=== PATIENT | female | born 1995 | race Caucasian/White ===

== ENCOUNTER → 2022-07-12 08:23 | Outpatient (BNVA) | payer BC, SELFPAY | PROVIDERS: Visit Provider Family Medicine Adult Medicine | DX: O26.91 Pregnancy related conditions, unspecified, first trimester (principal); R39.9 Unspecified symptoms and signs involving the genitourinary system; Z3A.00 Weeks of gestation of pregnancy not specified | CPT/HCPCS: 81000; 81025 ==

== ENCOUNTER 2024-10-16 11:18 | Emergency (ER) | payer BC, SELFPAY ==
[2024-10-16 11:20] VITALS: BP 95/63; PULSE 80; RESP 16; TEMP 36.4; O2SAT 98; BMI 22.1
--- OUTSIDE RECORDS SUMMARY | 2024-10-16 11:26 | XMS_ITS | Clinical Summary ---
Author Organization [facility] david Blencoe Address [address] [facility] [place] [address] Care Team Providers Care Skin Therapist Name Role Phone Unavailable Primary Care Provider Unavailabl e Medications No known medications Active Problems Problem Noted Date Diagnosed Date Chlamydia, treated 02/12/22 02/12/2022 Family History Medical History Relation Name Comments Ovarian Cancer Maternal Grandmother Breast Cancer Neg Hx Relation Name Status Comments Maternal Grandmother Social History Tobacco Use Types Packs/Day Years Used Date Smoking Tobacco: Former Cigarettes Tobacco Cessation:Counseling Given: Not Answered Alcohol Use Standard Drinks/Week Comments Yes 0 (1 standard drink = 0.6 oz pur e alcohol) Comments Unknown Sex and Gender Information Value Date Recorded Sex Assigned at Not on file Legal Sex Female 3:48 PM CDT Gender Identity Not on file Sexual Orientation Not on file Last Filed Vital Signs Vital Sign Reading Time Taken Comments Blood Pressure 125/70 02/06/2022 10:51 AM CDT Pulse - - Temperature - - Respiratory Rate - - Oxygen Saturation - - Inhaled Oxygen Concentration - - Weight 63.5 kg (140 lb) 02/06/2022 10:51 AM CDT Height 154.9 cm (5' 1 ) 02/06/2022 10:51 AM CDT Body Mass Index 26.45 02/06/2022 10:51 AM CDT Plan of Treatment Health Maintenance Due Date Last Done Comments DTAP/TDAP/TD VACCINES (1 - Tdap) 2015 HEPATITIS B VACCINES (1 of 3 - 19+ 3-dose series) 2015 HPV/Cotest (21-29) 2017 INFLUENZA VACCINE (#1) 2024 CERVICAL CANCER SCREENING 02/06/2025 PAP SMEAR 02/06/2025 02/06/2022 HPV VACCINES Aged Out No longer eligi ble based on patient's age to complete this topic Procedures Procedure Name Priority Date/Time Associated Diagnosis Comments CERV/VAG CYTO AGE BASED SCREEN PAP Routine 02/06/2022 12:01 PM CDT Well woman exam with routine gynecological exam Screening for cervical cancer from Last 3 Months or Most Recently Relevant to Health Maintenance Results * CERV/VAG CYTO AGE BASED SCREEN PAP (02/06/2022 12:01 PM CDT) COMMENT (PAP): Renny Bradshaw Comment: This order for age-based cervical cancer and STI screening follows ACOG guidelines(PB 168, 140, DHV018). See individual assays for performing site location. CLINICAL INFORMATION Renny Bradshaw Comment:None given LAST MENSTRUAL PERIOD Renny Bradshaw Comment:NONE GIVEN PREV PAP: Renny Bradshaw Comment:NONE GIVEN PREV BX: Renny Bradshaw Comment:NONE GIVEN SOURCE Renny Bradshaw Comment:Endocervix ADEQUACY: Renny Bradshaw Comment: Satisfactory for evaluation. Endocervical/transformation zone component present. Age and/or menstrual status not provided PAP INTERP Renny Bradshaw Comment:Negative for intraep ithelial lesion or malignancy. CYTOLOGY INFECTION Q umilly Bradshaw Comment: Shift in vaginal juan suggestive of bacterial vaginosis. COMMENT (PAP TEST) Q corwin Bradshaw Comment: This Pap test has been evaluated with computer assisted technology. PLASTIC TOOL MAKER: Nohemi Bradshaw Comment: MARKEL LANGLEY(ASCP) CT Screening Location: [place] [address] [address] [place] [id number] Karlee Bradshaw Comment: EXPLANATORY NOTE: The Pap is a screening test for cervical cancer. It is not a diagnostic test and is subject to false negative and false positive results. It is most reliable when a satisfactory sample, regularly obtained, is submitted with relevant clinical findings and history, and when the Pap result is evaluated along with historic and current clinical information. Test Performed at: [place] [address] [address] [place] [id number] [place] [facility] SWAB OF ENDOCERVIX / Unknown 02/06/2022 12:01 PM CDT 02/07/2022 3:28 AM CDT Naty Paul MD PATHOLOGY/CYTOLOGY LINDA [place] Final Result [facility] [phone] [facility] [address] [address] [place] [id number] from Last 3 Months or Most Recently Relevant to Health Maintenance Insurance [address] [place] [id number] [employer] [id number] Member Subscriber Plan / Payer (Ef fective 2021-Present) Name:Génesis Alicea Relation to Subscriber:Child Name:OTISJULIARUSTAM CHILDERS Date of :1968 (Home) Address[address] [address] [place] [place] [address] Payer ID:[id number] (NAIC) Type:O Address: [facility] [id number] BLUE ACCESS/TRUE BLUE PPO
--- OUTSIDE RECORDS SUMMARY | 2024-10-16 11:26 | XMS_ITS | Data Portability ---
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 Colon cancer on both sides of family. Father has had multiple polyps removed during regular colonoscopies. She is within 10 years open finally members were diagnosed age hurley. As such, she is an excellent candidate for a screening colonoscopy, even at her age. Not available 06/24/2024 07:44:57 07/20/2024 07/20/2024 Annual gynecological exam performed. Patient will come back in a year unless there are new symptoms. [email or web address] Not available 07/12/2024 19:37:05 08/18/2024 08/18/2024 Repeat colonoscopy in 5 years due to family history Not available 10/04/2024 01:14:36 Plan of Treatment Reminders Order Date Submit Date Provider Last Modified By Organization Details Last Modified Time Details Appointments OFFICE VISIT 15 2024 03:30P M Nancy Guzman MD Not available Not available Not available Lab urinalysi s, complete 2024 025 [facility], [address], [facility], [place], [address], 09/02/2024 17:48:33 culture, urine 05/13/ 2025 05/13/2 025 [facility], [address], [address], [place], [address], 08/21/2024 00:00:18 urinalysi s, complete 2024 [facility], [address], [place], [address], 08/18/2024 17:55:27 Referral None recorded. Procedures colonosco py screening (PROC) 2024 025 [facility] Not available 06/24/2024 12:01:23 Surgeries None recorded. Imaging None recorded. Medication Orders omeprazol e 20 mg capsule,d elayed release 2024 [facility], [address], [place], [address], 09/02/2024 20:44:58 sertralin e 100 mg tablet 2024 025 [facility] 15, [address], [place], [address], 09/02/2024 17:07:36 Macrobid 100 mg capsule 2024 025 [facility] 15, [address], [place], [address], 09/02/2024 16:50:02 butalbita l-acetami nophen-ca ffeine 50 mg-325 mg-40 mg tablet 2024 025 [facility] 15, [address], [place], [address], 07/21/2024 09:13:42 sertralin e 50 mg tablet 2024 025 [facility], [address], [place], [address], 09/03/2024 18:51:52 Patient TargetsNo targets recorded. Patient Instructions Encounter Date Encounter Id Patient Instructions Last Modified By Organization Details Last Modified Time 06/23/2024 [id number] colonoscopy prep - miralax Not available 06/24/2024 07:44:56 colonoscopy education Not available 06/24/2024 07:44:56 colonoscopy education Not available 06/24/2024 07:44:56 Reason for Referral None Reported. Results Created Date Observation Date Name Description Value Unit Range Abnormal Flag Note LastModifiedBy Organization Detail LastModifiedTime 06/10/1906/09/2024 CBC WBC 6.3 x10 4.0-10 .5 Not Available [facility] [address] [facility] [address], [place], [address], 06/09/2024 18:01:19 06/10/1906/09/2024 CBC RBC 4.49 x10 3.50-5 .50 Not Available [facility] [address] [facility] [address], [place], [address], 06/09/2024 18:01:19 06/10/1906/09/2024 CBC HGB 14.7 g/dL 12.0-1 6.0 Not Available [facility] [address] [facility], [place], [address], 06/09/2024 18:01:19 06/10/1906/09/2024 CBC HCT 40.7 % 37.0-4 7.0 Not Available [facility] [address] [facility], [place], [address], 06/09/2024 18:01:19 06/10/1906/09/2024 CBC MCV 90.6 fL 80.0-9 9.9 Not Available [facility] [address] [facility], [place], [address], 06/09/2024 18:01:19 06/10/1906/09/2024 CBC MCH 32.7 pg 27.0-3 2.0 high Not Available [facility] [address] [facility], [place], [address], 06/09/2024 18:01:06/10/1906/09/2024 CBC MCHC 36.0 g/dL 32.0-3 6.0 Not Available [facility] [address] [facility], [place], [address], 06/09/2024 18:01:06/10/1906/09/2024 CBC RDW 13.5 % 11.5-1 4.5 Not Available [facility] [address] [facility] [address], [place], [address], 06/09/2024 18:01:06/10/1906/09/2024 CBC plt 174.8 x10 140.0- 451.0 Not Available [facility] [address] [facility] [address], [place], [address], 06/09/2024 18:01:06/10/1906/09/2024 CBC lymphocytes % 36.3 % 20.0-5 0.0 Not Available [facility] [address] [facility], [place], [address], 06/09/2024 18:01:06/10/1906/09/2024 CBC granulcytes % 53.6 % 30.0-7 0.0 Not Available [facility] [address] [facility] [address] [facility], [place], [address], 06/09/2024 18:01:19 06/10/1906/09/2024 CBC monocytes % 7.8 % 2.0-16 .0 Not Available [facility] [address] [facility] [address], [place], [address], 06/09/2024 18:01:19 06/10/1906/09/2024 CBC granulcytes# 3.4 x10 Not Che ilable [facility] [address] [facility] [address], [place], [address], 06/09/2024 18:01:19 06/10/1906/09/2024 CBC lymphocytes # 2.3 x10 Not Available [facility] [address] [facility] [address], [place], [address], 06/09/2024 18:01:19 06/10/1906/09/2024 CBC monocytes # 0.5 x10 Not Avai lable [facility] [address] [address], [place], [address], 06/09/2024 18:01:19 06/10/1906/10/2024 CMP (FEMA LE) glucose 97.0 mg/dL 60.0-9 9.0 Not Available [facility] [address] [address], [place], [address], 06/10/2024 07:54:34 06/10/19 25 06/10/2024 CMP (FEMA LE) BUN (blood urea nitrogen) 8.0 mg/dL 10.0-2 6.0 low Not Available [facility] [address] [address], [place], [address], 06/10/2024 07:54:34 06/10/19 25 06/10/2024 CMP (FEMA LE) creatinine (serum) 0.7 mg/dL 0.4-1. 5 Not Available [facility] [address] [address], [place], [address], 06/10/2024 07:54:34 06/10/19 25 06/10/2024 CMP (FEMA LE) BUN/creatini ne ratio 11.43 ratio Not Available [facility] [address] [facility] [address], [place], [address], 06/10/2024 07:54:34 06/10/19 25 06/10/2024 CMP (FEMA LE) eGFR calculated 105.9 Not Available [facility] [address] [facility] [address], [place], [address], 06/10/2024 07:54:34 06/10/19 25 06/10/2024 CMP (FEMA LE) total protein 8.1 g/dL 6.0-8. 5 Not Available [facility] [address] [address], [place], [address], 06/10/2024 07:54:34 06/10/19 25 06/10/2024 CMP (FEMA LE) total bilirubin 1.9 mg/dL 0.2-1. 3 high Not Available [facility] [address] [address], [place], [address], 06/10/2024 07:54:34 06/10/19 25 06/10/2024 CMP (FEMA LE) albumin 5.0 g/dL 3.5-5. 5 Not Available [facility] [address] [address], [place], [address], 06/10/2024 07:54:34 06/10/19 25 06/10/2024 CMP (FEMA LE) globulin 3.1 calc Not Available [facility] [address] [address], [place], [address], 06/10/2024 07:54:34 06/10/19 25 06/10/2024 CMP (FEMA LE) AST (SGOT) 20.0 U/L 0.0-46 .0 Not Available [facility] [address] [facility], [place], [address], 06/10/2024 07:54:34 06/10/19 25 06/10/2024 CMP (FEMA LE) altv (SGPT) 12.0 U/L 13.0-6 9.0 abnormal Not Available [facility] [address] [facility], [place], [address], 06/10/2024 07:54:34 06/10/19 25 06/10/2024 CMP (FEMA LE) A/G ratio 1.6 ratio Not Available [facility] [address] [facility] [address], [place], [address], 06/10/2024 07:54:34 06/10/19 25 06/10/2024 CMP (FEMA LE) ALP phos 47.0 U/L 30.0-1 40.0 normal Not Available [facility] [address] [facility] [address], [place], [address], 06/10/2024 07:54:34 06/10/19 25 06/10/2024 CMP (FEMA LE) calcium 9.6 mg/dL 8.4-10 .5 Not Available [facility] [address] [facility] [address], [place], [address], 06/10/2024 07:54:34 06/10/19 25 06/10/2024 CMP (FEMA LE) sodium 139.0 mmol/ L 136.0- 145.0 Not Available [facility] [address] [facility] [address], [place], [address], 06/10/2024 07:54:34 06/10/19 25 06/10/2024 CMP (FEMA LE) potassium 4.0 mmol/ L 3.5-5. 1 Not Available [facility] [address] [address], [place], [address], 06/10/2024 07:54:34 06/10/19 25 06/10/2024 CMP (FEMA LE) chloride 104.0 mmol/ L 98.0-1 10.0 normal Not Available [facility] [address] [facility], [place], [address], 06/10/2024 07:54:34 06/10/19 25 06/10/2024 CMP (FEMA LE) C02 25.0 mmol/ L 22.0-3 1.0 Not Available [facility] [address] [facility], [place], [address], 06/10/2024 07:54:34 06/10/19 25 06/10/2024 CMP (FEMA LE) anion gap 10.0 calc Not Available [facility] [address] [facility] [address], [place], [address], 06/10/2024 07:54:34 06/10/19 25 06/10/2024 CMP (FEMA LE) osmolality 285.5 calc Not Available [facility] [address] [facility], [place], [address], 06/10/2024 07:54:34 06/10/19 25 06/10/2024 LIPID PROFI LE (FEMA LE) cholesterol 138.0 mg/dL 0.0-20 0.0 Not Available [facility] [address] [facility], [place], [address], 06/10/2024 07:54:36 06/10/19 25 06/10/2024 LIPID PROFI LE (FEMA LE) trig 70.0 mg/dL 0.0-15 0.0 Not Available [facility] [address] [facility] [address], [place], [address], 06/10/2024 07:54:36 06/10/19 25 06/10/2024 LIPID PROFI LE (FEMA LE) HDL - direct 54.0 mg/dL >40.0 Not Available [facility] [address] [facility] [address], [place], [address], 06/10/2024 07:54:36 06/10/19 25 06/10/2024 LIPID PROFI LE (FEMA LE) VLDL - direct 14.0 mg/dL Not Available [facility] [address] [facility] [address], [place], [address], 06/10/2024 07:54:36 06/10/19 25 06/10/2024 LIPID PROFI LE (FEMA LE) LDL - direct 70.0 mg/dL 0.0-13 0.0 Not Available [facility] [address] [facility] [address], [place], [address], 06/10/2024 07:54:36 06/10/19 25 06/15/2024 ALPHA GAL PANEL beef (F27) IgE <0.10 kU/L normal Not Available [facility] [address], [address], 06/15/2024 08:19:06 06/10/19 25 06/15/2024 ALPHA GAL PANEL class 0 Not Available [facility] [address] [address] [place], [address], 06/15/2024 08:19:06 06/10/19 25 06/15/2024 ALPHA GAL PANEL calvert (F88) IgE <0.10 kU/L normal Not Available [facility] [address] [address] [place], [address], 06/15/2024 08:19:06 06/10/19 25 06/15/2024 ALPHA GAL PANEL class 0 Not Available [facility] [address], [address], 06/15/2024 08:19:06 06/10/19 25 06/15/2024 ALPHA GAL PANEL pork (F26) IgE <0.10 kU/L normal Not Available [facility] [address] [place], [address], 06/15/2024 08:19:06 06/10/19 25 06/15/2024 ALPHA GAL PANEL class 0 Not Available [facility] [address] [place], [address], 06/15/2024 08:19:06 06/10/1906/15/2024 ALPHA GAL PANEL galactose alpha 1,3 galactose IgE <0.10 kU/L <0.10 Resul ts above 0.1 kU/L indic ate an aller gen-s pecif ic IgE sensi tizat ion to galac tose- a-1,3 -gala ctose , and such patie nts are at risk for delay ed aller gic react ions follo wing beef, pork, or cavlert consu mptio n. Circu latin g IgE antib odies may remai n undet ectab le despi te a convi ncing clini desirae histo ry becau se these antib odies may be direc magdalena towar ds aller gens revea led or alter ed durin g indus trial proce ssing , cooki ng, or diges tion and there fore do not exist in the origi nal food for which the patie nt is teste d. Somet imes indiv idual s diagn osed with chron ic urtic aria may devel op IgE antib odies direc magdalena again st human thyro globu mynor. Such antib odies may cross -reac t with the bovin e thyro globu mynor used in Immun oCAP( R) Aller gen o215, alpha -Gal, leadi ng to a false -posi tive test resul t. A defin itive diagn osis shoul d be based on the evalu ation of both clini desirae and labor atory findi ngs and not on any singl e diagn ostic metho d. Addit ional infor fer n can be found at http: //www .phad ia.co m Not Available [address] [address] [place], [address], 06/15/2024 08:19:06 06/10/1906/15/2024 INTER PRETA TION interpretati on Speci fic Level of Aller gen IGE Class kU/L Speci fic IGE Antib dyana ----- ----- ---- ----- ----- ----- ---- 0 <0.10 Absen t/Und etect able 0/1 0.10- 0.34 Very Low Level 1 0.35- 0.69 Low Level 2 0.70- 3.49 Moder ate Level 3 3.50- 17.4 High Level 4 17.5- 49.9 Very High Level 5 50-10 0 Very High Level 6 >100 Very High Level The clini desirae relev ance of aller gen resul ts of 0.10- 0.34 kU/L are undet ermin ed and inten ded for speci alist use. Aller gens denot ed with a inclu de resul ts using one or more brayden te speci fic reage nts. In those cases , the test was devel oped and its brayden tical perfo rmanc e ki cteri stics have been deter mined by [facility]. It has not been clear ed or appro ash by the U.S. Food and Drug Admin istra tion. This assay has been valid ated pursu ant to the CLIA regul ation s and is used for clini desirae purpo ses. Not Available [facility] [address] [address] [place], [address], 06/15/2024 08:19:08 07/22/1907/29/2024 THINP REP TIS PAP REFLE X HPV MRNA E6/E7 , CHLAM YDIA/ N.MARLEN ORRHO EAE clinical information: normal Janna l exam Not Available [facility] [address] [address] [place], [address], 07/29/2024 20:23:39 07/22/19 25 07/29/2024 THINP REP TIS PAP REFLE X HPV MRNA E6/E7 , CHLAM YDIA/ N.MARLEN ORRHO EAE LMP: normal NONE GIVEN Not Available [address] [place], [address], 07/29/2024 20:23:39 07/22/19 25 07/29/2024 THINP REP TIS PAP REFLE X HPV MRNA E6/E7 , CHLAM YDIA/ N.MARLEN ORRHO EAE prev. Pap: normal NONE GIVEN Not Available [address] [address] [place], [address], 07/29/2024 20:23:39 07/22/19 25 07/29/2024 THINP REP TIS PAP REFLE X HPV MRNA E6/E7 , CHLAM YDIA/ N.MARLEN ORRHO EAE prev. BX: normal NONE GIVEN Not Available [address], [address], 07/29/2024 20:23:39 07/22/19 25 07/29/2024 THINP REP TIS PAP REFLE X HPV MRNA E6/E7 , CHLAM YDIA/ N.MARLEN ORRHO EAE source: normal Cervi x, Endoc ervix Not Available [address], [address], 07/29/2024 20:23:39 07/22/19 25 07/29/2024 THINP REP TIS PAP REFLE X HPV MRNA E6/E7 , CHLAM YDIA/ N.MARLEN ORRHO EAE statement of adequacy: normal Satis facto ry for evalu ation . Endoc ervic al/tr ansfo rmati on zone compo nent prese nt. Age and/o r menst rual statu s not provi ded Not Available [address] [place], [address], 07/29/2024 20:23:39 07/22/19 25 07/29/2024 THINP REP TIS PAP REFLE X HPV MRNA E6/E7 , CHLAM YDIA/ N.MARLEN ORRHO EAE general categorizati on: abnormal Cytol ogy Resul ts: Epith elial Cell Abnor malit y Not Available [facility] [address] [address] [place], [address], 07/29/2024 20:23:39 07/22/19 25 07/29/2024 THINP REP TIS PAP REFLE X HPV MRNA E6/E7 , CHLAM YDIA/ N.MARLEN ORRHO EAE interpretati on/result: abnormal Atypi desirae Squam ous Cells of Undet ermin ed Signi fican ce (ASC- [place]) Not Available [facility] [address] [address] [place], [address], 07/29/2024 20:23:39 07/22/19 25 07/29/2024 THINP REP TIS PAP REFLE X HPV MRNA E6/E7 , CHLAM YDIA/ N.MARLEN ORRHO EAE comment: normal This Pap test has been evalu ated with compu ter cindy magdalena techn ology . Sugge st clini desirae corre latio n and follo w-up as clini joyce appro priat e Not Available [facility] [address] [address] [place], [address], 07/29/2024 20:23:39 07/22/19 25 07/29/2024 THINP REP TIS PAP REFLE X HPV MRNA E6/E7 , CHLAM YDIA/ N.MARLEN ORRHO EAE cytotechnolo gist: normal PCM, CT( CP) CT Scree celestino Locat ion: [address] [address] [place] [address] Not Available [facility] [address] [address] [place], [address], 07/29/2024 20:23:39 07/22/19 25 07/29/2024 THINP REP TIS PAP REFLE X HPV MRNA E6/E7 , CHLAM YDIA/ N.MARLEN ORRHO EAE pathologist: normal Janna valiente M.D., Board Certi fied in Anato ruiz Patho logy and Cytop athol ogy. Phone : [phone] (elec rhoda cuellar signa jennifer) Not Available [address], [address], 07/29/2024 20:23:39 07/22/19 25 07/29/2024 THINP REP TIS PAP REFLE X HPV MRNA E6/E7 , CHLAM YDIA/ N.MARLEN ORRHO EAE comment EXPLA NATOR Y NOTE: The Pap is a scree celestino test for cervi desirae cance r. It is not a diagn ostic test and is subje ct to false negat byron and false posit byron resul ts. It is most relia ble when a satis facto ry sampl e, regul sebastian obtai reese, is submi tted with relev ant clini desirae findi ngs and histo ry, and when the Pap resul t is evalu ated along with histo soto and curre nt clini desirae infor matio n. Not Available [address] [place], [address], 07/29/2024 20:23:39 07/22/19 25 07/29/2024 THINP REP TIS PAP REFLE X HPV MRNA E6/E7 , CHLAM YDIA/ N.MARLEN ORRHO EAE chlamydia trachomatis RNA, tma, urogenital NOT DETECT ED not detect ed normal Not Available [address] [place], [address], 07/29/2024 20:23:39 07/22/19 25 07/29/2024 THINP REP TIS PAP REFLE X HPV MRNA E6/E7 , CHLAM YDIA/ N.MARLEN ORRHO EAE neisseria gonorrhoeae RNA, tma, urogenital NOT DETECT ED not detect ed normal Not Available [address], [address], 07/29/2024 20:23:39 07/22/19 25 07/29/2024 THINP REP TIS PAP REFLE X HPV MRNA E6/E7 , CHLAM YDIA/ N.MARLEN ORRHO EAE comment The brayden tical perfo rmanc e ki cteri stics of this assay , when used to test SureP ath(T M) speci mens have been deter mined by [facility]. The modif icati ons have not been clear ed or appro ash by the FDA. This assay has been valid ated pursu ant to the CLIA regul ation s and is used for clini desirae purpo ses. For addit ional infor shadi ruelas e refer to https ://ed ucati on.qu estoluise lesterrona tics. com/f aq/FA Q154 (This link is being provi ded for infor fer n/ educa wesly l purpo ses only. ) Not Available [facility] [address], [address], 07/29/2024 20:23:39 07/22/19 25 07/29/2024 HPV MRNA E6/E7 HPV MRNA E6/E7 Not Detect ed not detect ed normal Metho dolog y: Trans cript ion-M ediat ed Ampli ficat ion This assay detec ts E6/E7 viral messe nger RNA (mRNA ) from 14 high- risk HPV types (16,1 8,31, 33,35 ,39,4 5,51, 52,56 ,58,5 9,66, 68). Cervi desirae sourc es are requi red for HPV testi ng. If a vagin al sourc e from a patie nt who has had a total hyste recto my with remov al of cervi x was submi tted, pleas e conta ct the testi ng labor atory for alter nativ e testi ng optio ns. For addit ional infor shadi ruelas e refer to http: //ciara blanchardque stdia gnost ics.c om/fa q/FAQ 129v1 (This link if provi ded for infor fer sanz/ educa wesly l purpo ses only. ) Not Available [facility] [address] [place], [address], 07/29/2024 20:23:40 08/19/19 25 08/18/2024 URINA LYSIS WITH MICRO color RED Not Available [facility] [address], [place], [address], 08/18/2024 17:55:27 08/19/19 25 08/18/2024 URINA LYSIS WITH MICRO clarity CLOUDY Not Available [facility] [address], [place], [address], 08/18/2024 17:55:27 08/19/19 25 08/18/2024 URINA LYSIS WITH MICRO glu 2+ Not Available [facility] [address], [place], [address], 08/18/2024 17:55:27 08/19/19 25 08/18/2024 URINA LYSIS WITH MICRO bili 2+ Not Available [facility] [address], [place], [address], 08/18/2024 17:55:27 08/19/19 25 08/18/2024 URINA LYSIS WITH MICRO ket 1+ Not Available [facility] [address], [place], [address], 08/18/2024 17:55:27 08/19/19 25 08/18/2024 URINA LYSIS WITH MICRO S.g 1.020 1.005- 1.025 Not Available [facility] [address], [place], [address], 08/18/2024 17:55:27 08/19/19 25 08/18/2024 URINA LYSIS WITH MICRO pH 5.0 5.0-7. 0 Not Available [facility] [address], [place], [address], 08/18/2024 17:55:27 08/19/19 25 08/18/2024 URINA LYSIS WITH MICRO pro 3+ Not Available [facility] [address], [place], [address], 08/18/2024 17:55:27 08/19/19 25 08/18/2024 URINA LYSIS WITH MICRO uro >=8.0 E.U./D L Not Available [facility] [address] [facility] [address], [place], [address], 08/18/2024 17:55:27 08/19/19 25 08/18/2024 URINA LYSIS WITH MICRO nit POSITI VE Not Available [facility] [address] [facility] [address], [place], [address], 08/18/2024 17:55:27 08/19/19 25 08/18/2024 URINA LYSIS WITH MICRO blo 3+ Not Available [facility] [address] [facility] [address], [place], [address], 08/18/2024 17:55:27 08/19/19 25 08/18/2024 URINA LYSIS WITH MICRO red 3+ Not Available [facility] [address] [facility] [address], [place], [address], 08/18/2024 17:55:27 08/19/19 25 08/18/2024 URINA LYSIS WITH MICRO WBC 100> Not Available [facility] [address] [facility] [address], [place], [address], 08/18/2024 17:55:27 08/19/19 25 08/18/2024 URINA LYSIS WITH MICRO RBC 100> Not Available [facility] [address] [facility] [address], [place], [address], 08/18/2024 17:55:27 08/19/19 25 08/18/2024 URINA LYSIS WITH MICRO epi cells 20-25 Not Available [facility] [address] [facility] [address], [place], [address], 08/18/2024 17:55:27 08/19/1908/18/2024 URINA LYSIS WITH MICRO bacteria 1+ MIXED HA Not Available [facility] [address] [facility], [place], [address], 08/18/2024 17:55:27 08/19/1908/18/2024 URINA LYSIS WITH MICRO other NEGATI VE Not Available [facility] [address] [facility] [place], [address], 08/18/2024 17:55:27 08/19/19 25 08/20/2024 CULTU RE, URINE , ROUTI NE culture, urine, routine SEE NOTE CULTU RE, URINE , ROUTI NE Micro Numbe r: [id number] Test Statu s: Final Speci men Sourc e: Urine , clean catch Speci men Quali ty: Adequ ate Resul t: Less than 10,00 0 CFU/m L of singl e Gram posit byron organ ism isola magdalena. No furth er testi ng will be perfo rmed. If clini joyce indic ated, recol lecti on using a metho d to minim ize conta minat ion, with promp t trans elissa to Urine Cultu re Trans port Tube, is recom seun d. Not Available [facility] [id number], [place], [address], 08/21/2024 00:00:17 09/03/1909/02/2024 URINA LYSIS WITH MICRO color YELLOW Not Available [facility] [address] [facility] [address], [place], [address], 09/02/2024 17:48:33 09/03/1909/02/2024 URINA LYSIS WITH MICRO clarity CLEAR Not Available [facility] [address] [facility] [place], [address], 09/02/2024 17:48:33 09/03/19 25 09/02/2024 URINA LYSIS WITH MICRO glu NEGATI VE Not Available [facility] [address], [place], [address], 09/02/2024 17:48:33 09/03/19 25 09/02/2024 URINA LYSIS WITH MICRO bili NEGATI VE Not Available [facility] [address], [place], [address], 09/02/2024 17:48:33 09/03/19 25 09/02/2024 URINA LYSIS WITH MICRO ket NEGATI VE Not Available [facility] [address], [place], [address], 09/02/2024 17:48:33 09/03/1909/02/2024 URINA LYSIS WITH MICRO S.g 1.025 1.005- 1.025 Not Available [facility] [address], [place], [address], 09/02/2024 17:48:33 09/03/1909/02/2024 URINA LYSIS WITH MICRO pH 6.5 5.0-7. 0 Not Available [facility] [address] [address], [place], [address], 09/02/2024 17:48:33 09/03/1909/02/2024 URINA LYSIS WITH MICRO pro NEGATI VE Not Available [facility] [address], [place], [address], 09/02/2024 17:48:33 09/03/1909/02/2024 URINA LYSIS WITH MICRO uro 0.2 E.U./D L Not Available [facility] [address], [place], [address], 09/02/2024 17:48:33 09/03/19 25 09/02/2024 URINA LYSIS WITH MICRO nit NEGATI VE Not Available [facility] [address] [facility] [address], [place], [address], 09/02/2024 17:48:33 09/03/19 25 09/02/2024 URINA LYSIS WITH MICRO blo NEGATI VE Not Available [facility] [address] [facility] [address], [place], [address], 09/02/2024 17:48:33 09/03/19 25 09/02/2024 URINA LYSIS WITH MICRO red TRACE Not Available [facility] [address] [facility] [address], [place], [address], 09/02/2024 17:48:33 09/03/19 25 09/02/2024 URINA LYSIS WITH MICRO WBC 10-12 Not Available [facility] [address] [facility] [address], [place], [address], 09/02/2024 17:48:33 09/03/19 25 09/02/2024 URINA LYSIS WITH MICRO RBC 2-3 Not Available [facility] [address] [facility] [address], [place], [address], 09/02/2024 17:48:33 09/03/19 25 09/02/2024 URINA LYSIS WITH MICRO epi cells 25-30 Not Available [facility] [address] [facility] [address], [place], [address], 09/02/2024 17:48:33 09/03/1909/02/2024 URINA LYSIS WITH MICRO bacteria TRACE OF MIXED HA Not Available [facility] [address] [facility] [address], [place], [address], 09/02/2024 17:48:33 09/03/19 25 09/02/2024 URINA LYSIS WITH MICRO other NEGATI VE Not Available [facility] [address], [place], [address], 09/02/2024 17:48:33 07/15/19 25 07/10/2024 colon oscop y scree celestino (PROC ) No observ ation record ed. [email or web address] [facility] [address], [place], [address], 07/15/2024 12:18:39 Result Notes None recorded. Problems Name Problem SNOMED Code Status Onset Date Resolution Date Notes Provider Name and Address Organization Details Recorded Time Anxiety 90015164 [facility] 025 [facility] 17:28:50 Depressive disorder 99424435 Active 025 Cristy [facility] 5 17:29:16 Abdominal pain 84903981 Active 025 Cristy Douglass [facility] 5 17:29:40 Irregular bowel habits 096027862 Active 025 Cristy Douglass [facility] 5 12:18:11 Allergy to food 353164057 Active 025 Cristy [facility]lass [facility] 5 12:18:21 Gastritis 3205744 Active 025 Cristy Douglass [facility] 5 12:18:04 Chronic tension-type headache 687018495 Active 025 [facility] 16:37:37 Problem Notes None recorded. Procedures Surgical History Date Name Laterality Status Provider Name and Address Organization Details Recorded Time Date of Last Pap Smear completed [facility] [place] 07/20/2024 16:54:37 [facility] 13:21:22 [facility] 11:38:02 Imaging Results None recorded. Procedure Notes None recorded. Medical Equipment None Reported. Allergies No known drug allergies Medications Name Sig Start Date Stop Date Status Note LastModified by Organization Details LastModified Time sertralin e 100 mg tablet Take 1 tablet every day by oral route. 2024 active Not Available Not Available Not Avai labtasia butalbita l-acetami nophen-ca ffeine 50 mg-325 mg-40 mg tablet TAKE 1 TABLET BY MOUTH EVERY 4 HOURS NEEDED active Not Available Not Available No t Available omeprazol e 20 mg capsule,d elayed release TAKE 1 CAPSULE BY MOUTH EVERY DAY active Not Available Not Available No t Available sertralin e 50 mg tablet TAKE 1 TABLET BY MOUTH ONCE DAILY 09/03 completed Not Available Not Available Not Available bupropion HCl XL 150 mg 24 hr tablet, extended release TAKE 1 TABLET BY MOUTH ONCE DAILY 08/18 completed switched to sertrali ne Not Available Not Available Not Available nitrofura ntoin monohydra te/macroc rystals 100 mg capsule TAKE 1 CAPSULE BY MOUTH EVERY 12 HOURS 09/02 completed Not Available Not Available Not Available Vitals Date Recorded Body height Body mass index (BMI) Body weight Heart rate Oxygen saturation Oxygen saturation in Arterial blood by Pulse oximetry Respiratory rate Body temperature Systolic And Diastolic Provider Name and Address Organization Details Last Updated DateTime 5 156.21 cm 23.1 kg/m2 99370.8 5 g 67 /min 98 % 98 % 16 /min 99.1 [degF] 118/76 mm[Hg] [facility], [place] 5 17:45:40 Date Recorded Body height Body mass index (BMI) Body weight Body temperature Oxygen saturation Oxygen saturation in Arterial blood by Pulse oximetry Heart rate Systolic And Diastolic Provider Name and Address Organization Details Last Updated DateTime 5 156.21 cm 23.4 kg/m2 49753.3 4 g 97.8 [degF] 98 % 98 % 84 /min 128/82 mm[Hg] LOBO THIERRY [facility] 5 17:03:17 Date Recorded Body height Body mass index (BMI) Body weight Respiratory rate Body temperature Systolic And Diastolic Provider Name and Address Organization Details Last Updated DateTime 5 156.21 cm 23.5 kg/m2 04971.4 4 g 18 /min 98.9 [degF] 120/72 mm[Hg] YAMILKA VALDEZ [facility] 5 16:46:00 Date Recorded Body height Body mass index (BMI) Body weight Body temperature Oxygen saturation Oxygen saturation in Arterial blood by Pulse oximetry Heart rate Systolic And Diastolic Provider Name and Address Organization Details Last Updated DateTime 5 156.21 cm 23.4 kg/m2 48226.6 4 g 97.8 [degF] 99 % 99 % 88 /min 116/68 mm[Hg] Reyna Alex [facility] 5 16:48:05 Social History Question Answer Notes LastModified by Organizat ion Details LastModified Time Tobacco Smoking Status [facility] 06/09/2024 17:20:53 Which Illicit Or Recreational Drugs Have You Used? Medical Marijuana [email or web address] Information not available 06/09/2024 What Was The Date Of Your Most Recent Tobacco Screening? 09/02/2024 Information not available 09/02/2024 What Is Your Current Pack Years? 10packyears [email or web address] Information not available 06/09/2024 Sex: Unknown Functional Status Question Answer Note LastModified by Organizat ion Details LastModified Time How many times per week do you consume alcohol? Less than 1 time per week Information not available 09/02/2024 Do you use any illicit or recreational drugs? Yes [email or web address] Information not available 06/09/2024 What is your level of alcohol consumption? Occasional Information not available 06/09/2024 Mental Status None recorded. Family History Relationship Description Onset Age of this Age Resolved Age Notes LastModified by Organization Details LastModified Time Father No current problems or disability [email or web address] Not available 07/2024 17:31:05 Mother No current problems or disability Not available 07/2024 17:31:05 Mother Disorder of thyroid gland 7 OF HER MOTHER S FAMILY MEMBER S [email or web address] Not available 06/09/2024 17:32:00 Unspecified Relation Malignant tumor of colon matern al great Aunt, Matern al cousin , patern al great aunt, patern al grandf ather [email or web address] Not available 06/23/2024 17:40:10 Notes:both sides of her fami ly have DIABETES, COLON CANCER, HEART DISEASE AND HYPERTENTION Medical History Condition Response Coronary Artery Disease N Other N Gout N Kidney Stones N Blood Diseases N Hyperthyroidism N Breast Cancer N Blood Transfusion N Hypothyroidism N Depression Y COPD N Lung Disease N Defects or Inherited Disease N Developmental or Behavioral Disorders N Breast Problem N Difficulty Swallowing N Anesthesia Complications N Anxiety Disorder Y Meniere's disease N Muscle, Joint, or Bone Problems N Vision or Eye Problems N Arthritis N Polyps N Infertility N Cancer N Varicosities N Stroke N Endometriosis N Bladder or Kidney Problems N High Cholesterol N Liver Disease N Headaches N Fibromyalgia N Kidney Disease N Allergies/Hayfever N Heart Problems N Ear or Hearing Problems N Hospitalizations N Thyroid Problems N GI Problems N ADD/ADHD N Skin Problems N Eating Disorder N Anemia N Constipation N Mental Illness N Ovarian Cancer N Diabetes N Bedwetting N Seizures/Epilepsy N Tuberculosis N Eczema N Diverticulitis N Abuse/Domestic Violence N Asthma N Reflux/GERD N Hepatitis N Heart Disease N Pulmonary Embolism N Chronic Ear Infections N Pre-Eclampsia N Hypertension N Chicken Pox N Autism Spectrum Disorder (ASD) N Osteoporosis N Thrombophilias N Gynecological History Statement/Question Response Abnormal Pap Y Date of Last Pap Smear 07/20/2024 Current Control Method Tubal Ligat ion Age at First Child 20 Obstetrics History GPAL:G 3 P 1 1 1 2 Type Value Full Term 1 Induced 1 Spontaneous 0 Premature 1 Living 2 Ectopics 0 Total 3 Immunizations Vaccine Type Date Status Note Provider Nam e and Address Organization Details Recorded Time IPV 11/01/2000 completed RAFIQ CESAR null, [facility] 06/23/2024 17:37:24 MMR 11/01/2000 completed RAFIQ CESAR null, [facility] 06/23/2024 17:37:24 MMR 03/12/1997 completed RAFIQ CESAR null, [facility] 06/23/2024 17:37:24 COVID-19 vaccine, vector-nr, rS-Ad26, PF, 0.5 mL 04/17/2021 completed RAFIQ CESAR null, [facility] 06/23/2024 17:37:24 Tdap 11/14/2009 completed RAFIQ toscano, [facility] 06/23/2024 17:37:24 Tdap 12/09/2015 completed RAFIQ toscano, [facility] 06/23/2024 17:37:24 DTP 1996 completed RAFIQ CESAR null, [facility] 06/23/2024 17:37:24 DTP 12/30/1997 completed RAFIQ CESAR null, [facility] 06/23/2024 17:37:24 Hep B, unspecified formulation 1996 completed RAFIQ CESAR null, [facility] 06/23/2024 17:37:24 Hep B, unspecified formulation 1996 completed RAFIQ CESAR null, [facility] 06/23/2024 17:37:24 Hep B, unspecified formulation 03/12/1997 completed RAFIQ CESAR null, [facility] 06/23/2024 17:37:24 OPV 12/30/1997 completed RAFIQ toscano, [facility] 06/23/2024 17:37:24 polio, unspecified formulation 1996 completed RAFIQSLIVIA FAUSTY null, [facility] 06/23/2024 17:37:25 polio, unspecified formulation 1996 completed RAFIQSILVIA FAUSTY null, [facility] 06/23/2024 17:37:25 DTP-Hib 1996 completed RAFIQ ARSENIO null, [facility] 06/23/2024 17:37:25 DTP-Hib 1996 completed RAFIQSILVIA FAUSTY null, [facility] 06/23/2024 17:37:25 Hib (PRP-T) 1996 completed RAFIQSILVIA CESAR null, [facility] 06/23/2024 17:37:25 Hib (PRP-T) 12/30/1997 completed RAFIQ FAUSTY null, [facility] 06/23/2024 17:37:25 DTaP 11/01/2000 completed RAFIQ CESAR null, [facility] 06/23/2024 17:37:25 Influenza, split virus, quadrivalent, PF 01/18/2016 completed RAFIQ toscano, [facility] 06/23/2024 17:37:25 Past Encounters Encounter ID Performer Location Encounter Start Date Encounter Closed Date Diagnosis/Indication Diagnosis SNOMED-CT Code Diagnosis ICD10 Code Diagnosis Note [id number] Nancy Guzman MD [facility] ([facility]) [address] [place] [id number] 06/09/2024 17:10:53 06/09/2024 17:47:21 Depressive disorder 53759345 F32.A Discussed potential medication s that we can use to treat her depression . The patient states that her father is on Wellbutrin and has had good success with that medication . She would like to go ahead and proceed with bupropion at this time. Follow-up in 1 month. Anxiety 07008327 F41.9 Allergy to food 04218441 1 T78.1XXA The patient has had tick exposures in the past and alpha gal could be contributi ng to the patient's symptoms. We will obtain labs today. Irregular bowel habits 225943885 R19.4 Check labs. Family his tory of cancer of colon 968844060 Z80.0 Patient has significan t family of history of early colon cancer and recommende d the patient undergo colonoscop y. The patient intends to do a colonoscop y consult with Dr. Arguello. Hyperlipid emia screening 878212190 Z13.220 Gastritis 6376370 K29.70 Patient is having some upper abdominal pain with nausea and this could be related to gastritis. Recommend doing a trial of omeprazole and see if her symptoms improve. [id number] Mikey Arguello MD [facility] ([facility]) [address] [place] [id number] 06/23/2024 16:41:13 06/25/2024 07:36:44 Family history of cancer of colon 905165022 Z80.0 Altered oswaldo wel function 77380849 R19.4 [id number] Nancy Guzman MD [facility] ([facility]) [address] [place] [address] [id number] 07/20/2024 16:44:32 07/20/2024 17:18:05 Depressive disorder 73701653 F32.A Discussed options for medication s and we will start Zoloft and see how she does with this. Follow-up in 1 month. Chronic te nsion-type headache 027738393 G44.229 Patient's descriptio n of her headaches is consistent with a tension type headache. Discussed interventi ons to help with this including stress which reduction, neck stretching , and moist heat. Will provide Fioricet as needed to help with severe headaches. Gynecologi c examination 42629442 Z01.419 No obvious concerns on exam today. Pap smear was obtained. [id number] Mikey Arguello MD [facility] ([facility]) [address] [place] [address] [phone] 08/18/2024 15:56:15 08/20/2024 10:44:29 Screening for malignant neoplasm of colon 732877470 Z12.11 Dysuria 65903161 R30.0 [id number] Nacny Guzman MD [facility] ([facility]) [address] [place] [id number] 09/02/2024 16:43:52 09/07/2024 07:43:54 Depressive disorder 79117442 F32.A Will increase the sertraline dose to 100 mg. Chronic te nsion-type headache 493468327 G44.229 Is doing fairly well on current interventi ons Gastritis 0446868 K29.70 Patient has had improvemen t of symptoms on omeprazole and states that she needs a refill. [id number] Mikey Arguello MD [facility] ([facility]) [address] [place] [id number] 09/02/2024 17:19:15 09/03/2024 10:17:09 Dysuria 20936752 R30.0 Health Concerns Section Related Observation LastModified by Organization Detai ls LastModified Time None Recorded Concern Status LastModified by Organization Details LastModified Time None Recorded Advance Directives Directive None Recorded Payers Insurance Date Sequence Insurance Name Policy Number Policy Renee Covered Member ID Renee Member ID Guarantor Name 09/07/2024 1 [employer] [id number] [facility] [id number] [facility] Notes Date Note Type Note Provider Name and Address Organization Details Recorded Time 06/23/2024 text/html Colonoscopy ScreeningReported bypatient.GI Symptoms:abdominal pain;rectal bleeding;harder or firmer stools;looser or softer stools Associated Symptoms:normal appetite Context:no prior examination Family History:colon cancer The patient presents today at the request of Dr. Guzman for evaluation and discussion of colonoscopy for colon cancer screening. The patient denies any recent abdominal pain, persistent diarrhea, persistent constipation, bloody or dark tarry stools, or mucusy stools. Last Colon Cancer screening: Problems with anesthesia in the past: NONE Family History of Colon cancers: YES, second and third degree relative on both sides Blood Thinners: NONE Co-morbidities: Mikey Arguello MD [address] [place] [address], [phone], [facility], [place]. 06/24/2024 07:45:04 07/20/2024 text/html Annual GYNReport ed bypatient.History:ovar claudette cysts(history after first child); obstetric history: G3T__P__A__L__ Menstrual cycle:states that they last 3-4 days and passes a lot of blood clots. Vulva:no genital lesion Vagina:normal vaginal discharge Breast:no breast pain; no breast lump Current Contraception:tubal ligation Sexual complaints:no pain during intercourse Psychological symptoms:depression;an xietyHeadacheReported bypatient.Location:ban d around head Quality:throbbing;tigh tness;pain;tension;dul l Duration:intermittent episodes lasting: (2-4 hours); 10-15 days/month Associated Symptoms:no vomiting;nausea;photop hobia;dizziness Pt is here for 1 month f/u on depression and to have a pap.Pt states that bupropion is not helping her and states that it is making her anger issues worse.Pts last pap was inconclusive.Pt has no concerns about STD.Pt is wanting to discuss meds for headaches. Patient states her headache starts at the posterior part of her head and wraps around her temples. States that occasionally she will have nausea with it but no other symptoms. Nancy Guzman MD [address] [place], [phone], [facility], [place]. 07/21/2024 17:38:53 08/18/2024 text/html Colonoscopy ScreeningReported bypatient.GI Symptoms:no abdominal pain; no rectal bleeding;diarrhea;cons tipation Associated Symptoms:normal appetite; no fever; no nausea;vomiting(this Am) Context:no prior examination Family History:colon cancerLower Urinary Tract Symptoms (LUTS)Reported bypatient.Quality:dull ; aching; continuous Severity:worsening Onset/Timin-3 times a day Context:history of urinary tract infection Follow up after colonoscopy procedure on 07/10/24 Pt states she started having burning/hurting during urination yesterday, frequency, low back pain, pt states after she is able to urinate she feels achy. Pt did start taking Azo this morning. Mikey Arguello MD [address] [place] [address], [phone], [facility] 10/04/2024 01:14:43 09/02/2024 text/html Anxiety/Depressi onRepo rted bypatient.Severity:sym ptoms improved Modifying Factors:social support Associated Symptoms:anxiety;depre ssion;sleep disturbances;social withdrawal;palpitation s;anxiety with excessive sweating;trembling or shaking (tremor);headaches;dec reased energy Pt would like to discuss increasing mg of sertraline, she has noticed only minimal improvement in depression/anxiety since starting the medication. Patient states that her headaches are doing fairly well and she is not requiring as needed medication very often. Nancy Guzman MD [address] [place] [address], [phone], [facility] 09/03/2024 18:50:33 OBGyn Episode No OBEpisode recorded.
--- OUTSIDE RECORDS SUMMARY | 2024-10-16 11:26 | XMS_ITS | Patient Health Record ---
Author Organization [facility] C Address [address] [place] [address] Care Team Providers Care Editor & Co Founder Name Role Phone PCP, NONE Primary Care Provider Unavailabl e Reason For Referral No Information Plan Of Treatment No Information Insurance Providers Payer Name Payer Address Payer Phone Subscriber Number Group Number Insured Name Patient Relationship to Insured Coverage Start Date Coverage End Date [facility] [address] [place] [address] [phone] [id number] Génesis Humphreys Self - patient is the insured Medical (General) History Medical History History ICD Code Back trouble
--- NOTE | 2024-10-16 11:37 | ED_ITS ---
HPI - Weakness 2 General: Chief complaint: Weakness Stated complaint: dehydrated Time Seen by Provider: 10/16/24 11:35 History of Present Illness: 29-year-old female presents emergency ro om with persistent nausea vomiting abdominal cramping. She is having carpopedal spasms as well. Patient was drinking heavily while outside yesterday also was using a vape THC pen. She has been continuingly ill since then she denies any medic easy melena hematemesis or coffee-ground emesis. Associated symptoms: Reports nausea and vomiting; Denies chest pain, chills, dysuria or fever(s) Related Data Previous Rx's ?Medication ?Instructions ?Recorded ondansetron 4 mg disintegrating 4 mg PO Q8H PRN nausea and 07/12/22 tablet vomiting #7 tabs lorazepam 2 mg tablet (Ativan) 2 mg buccal TID PRN don sea and 10/16/24 vomiting #14 tabs olanzapine 10 mg disintegrating 10 mg PO DAILY PRN don sea and 10/16/24 tablet vomitting #20 tabs Allergies Allergy/AdvReac Type Severity Reaction Status Date / Time No Known Allergies Allergy Unverified 07/12/22 08:19 Review of Systems 2 Const: Denies: fever(s) or chills Card: Denies: chest pain Resp: Denies: dyspnea GI: Reports: abdominal pain, nausea and vomiting : Denies: dysuria, urinary frequency or urinary urgency Musc: Denies: neck pain or back pain Skin/Breast: Denies: rash PFSH ED 2 PFSH: Medical History Acute viral syndrome Nausea & vomiting Physical Exam 2 Const: GENERAL APPEARANCE: cooperative ORIENTATION/CONSCIOUSNESS: Yes awake, Yes oriented to person, Yes oriented to place and Yes oriented to time HENMT: COMMON NORMALS: normocephalic, atraumatic and hearing grossly normal bilaterally HEAD & SCALP: normocephalic and atraumatic Resp: COMMON NORMALS: normal respiratory effort, No retractions, No use of accessory muscles and clear to auscultation bilaterally AUSCULTATION: clear to auscultation bilaterally Cardio: COMMON NORMALS: regular rate, regular rhythm and No murmurs present (Cardio) RATE: regular rate RHYTHM: regular rhythm GI: COMMON NORMALS: Soft to palpation and No hepatosplenomegaly present A USCULTATION: Yes normoactive bowel sounds PALPATION: Yes Soft to palpation, No Tenderness to palpation present (GI), No Guarding due to palpation present (GI) and Yes No hepatosplenomegaly present Extremity: COMMON NORMALS: normal to inspection, capillary refill normal, no clubbing, cyanosis or edema, no calf tenderness and no pedal edema Neuro: SENSORIUM/ORIENTATION: Yes oriented to person, Yes oriented to place and Yes oriented to time Skin: COMMON NORMALS: no rashes or lesions noted GENERAL SKIN EXAM: no rashes or lesions noted Course 2 Vital Signs: Vital signs: Vital Signs Temperature 97.5 F L 10/16/24 11:20 Pulse Rate 80 10/16/24 11:20 Respiratory Rate 16 10/16/24 11:20 Blood Pressure 95/63 10/16/24 11:20 Pulse Oximetry 98 10/16/24 11:20 Oxygen Delivery Me thod Room Air 10/16/24 11:20 MDM - Weakness Medical Decision Making Patient sedated after the medications. Nausea vomitings improved she is feeling better she ambulated to the bathroom without difficulty. Will discharge home olanzapine sublingual Ativan buccal to use as needed can recommend clear liquid diet for next 24 to 48 hours and advance as tolerated. Medical Records I reviewed the patient's medical records. Lab Data I reviewed the patient's lab results. 10/16/24 11:38 10/16/24 11:38 Laboratory Results WBC 14.22 10^3/uL (3.29-11.43) H 10/16/24 11:38 RBC 4.83 10^6/uL (3.85-5.65) 10/16/24 11:38 Hgb 15.00 g/dL (11.27-16.99) 10/16/24 11:38 Hct 44.5 % (36-47) 10/16/24 11:38 MCV 92.1 fl (85-98) 10/16/24 11:38 MCH 31.1 pg (27-33) 10/16/24 11:38 MCHC 33.7 g/dL (30-55) 10/16/24 11:38 RDW 12.6 % (12.1-15.1) 10/16/24 11:38 Plt Count 321 10^3/cmm (157-399) 10/16/24 11:38 MPV 10.9 fL (7.4-10.4) H 10/16/24 11:38 Neut % (Auto) 83.1 % 10/16/24 11:38 Lymph % (Auto) 12.2 % 10/16/24 11:38 [place] % (Auto) 3.7 % 10/16/24 11:38 Eos % (Auto) 0.3 % 10/16/24 11:38 Baso % (Auto) 0.4 % 10/16/24 11:38 Neut # (Auto) 11.84 10^3/uL (1.8-7.7) H 10/16/24 11:38 Lymph # (Auto) 1.7 10^3/uL (0.8-4.8) 10/16/24 11:38 [place] # (Auto) 0.5 10^3/uL (0.2-0.9) 10/16/24 11:38 Eos # (Auto) 0.0 10^3/uL (0.0-0.8) 10/16/24 11:38 Baso # (Auto) 0.1 10^3/uL (0.0-0.1) 10/16/24 11:38 Nucleated RBC % (auto) 0 % 10/16/24 11:38 Nucleated RBCs # 0.0 /100WBC 10/16/24 11:38 Sodium 140 mmol/L (136-145) 10/16/24 11:38 Potassium 3.6 mmol/L (3.5-5.1) 10/16/24 11:38 Chloride 99 mmol/L (98-107) 10/16/24 11:38 Carbon Dioxide 18 mmol/L (22-29) L 10/16/24 11:38 Anion Gap 26.6 (5-19) H 10/16/24 11:38 BUN 15 mg/dL (6-20) 10/16/24 11:38 Creatinine 0.9 mg/dL (0.5-0.9) 10/16/24 11:38 GFR Calculation 74.6 mL/min (90-130) L 10/16/24 11:38 Glucose 94 mg/dL (65-115) 10/16/24 11:38 Calculated Osmolality 291 mOsm/kg (285-295) 10/16/24 11:38 Calcium 10.0 mg/dL (8.5-10.5) 10/16/24 11:38 Total Bilirubin 1.6 mg/dL (0.15-1.2) H 10/16/24 11:38 AST 25 U/L (0-32) 10/16/24 11:38 ALT 17 U/L (0-33) 10/16/24 11:38 Alkaline Phosphatase 65 U/L (35-105) 10/16/24 11:38 Total Protein 8.2 g/dL (6.6-8.7) 10/16/24 11:38 Albumin 5.0 g/dL (3.5-5.2) 10/16/24 11:38 Globulin 3.2 g/dL (1.3-4.6) 10/16/24 11:38 Lipase 16 U/L (13-60) 10/16/24 11:38 HCG, Qual Negative (Negative) 10/16/24 11:38 Amorphous Sediment Not Reportable 10/16/24 13:32 No radiology studies performed this visit Discharge Plan Discharge Patient Disposition: Home Clinical Impression: Cannabinoid hyperemesis syndrome, Acute alcoholic gastritis Condition: Stable Prescriptions: New lorazepam [Ativan] 2 mg tablet 2 mg buccal TID PRN (Reason: nausea and vomiting) Qty: 14 0RF olanzapine 10 mg tablet,disintegrating 10 mg PO DAILY PRN (Reason: nausea and vomitting) Qty: 20 0RF No Action ondansetron 4 mg tablet,disintegrating 4 mg PO Q8H PRN (Reason: nausea and vomiting) Qty: 7 0RF Discharge Orders: Discharge ED (Routine); Ordered 10/16/24 Ordered By: Chalino Naqvi Referrals: Dax Guzman MD [Primary Care Provider, Family Practice] Discharge Diet: Usual diet Discharge Activity: Resume usual activity Patient Instructions: Opioid Safety, Pain Management, Patient Portal & Tawanna Instructions Activity Restrictions/Additional Instructions: Thank you for choosing [facility] for your healthcare needs today. It is very important that you follow up as instructed or that you return to the Emergency Department should you have concerns or if your condition changes or worsens in any way. You were seen today with persistent nausea and vomiting. This is likely a combination of alcoholic gastritis and THC use. Recommend clear liquid diet for 24 to 48 hours and advance as tolerated. You can use lorazepam and olanzapine as needed for relief of nausea or vomiting. Print Language: Turkmen Coding Level of Care Code ED Medical Affairs Director for Greg Avina
[2024-10-16 11:49] LABS: Hematocrit 44.5 % (36-47); Hemoglobin 15.00 g/dL (11.27-16.99); Mean Corpuscular HGB Conc 33.7 g/dL (30-55); Mean Corpuscular Hemoglobin 31.1 pg (27-33); Mean Corpuscular Volume 92.1 fl (85-98); Nucleated Red Blood Cells % 0 %; Platelet Count 321 10^3/cmm (157-399); Red Blood Count 4.83 10^6/uL (3.85-5.65); White Blood Count 14.22 10^3/uL (3.29-11.43)
[2024-10-16 11:55] LABS: HCG, Serum Qual Negative (Negative)
[2024-10-16 12:00] LABS: Alanine Aminotransferase 17 U/L (0-33); Albumin Level 5.0 g/dL (3.5-5.2); Alkaline Phosphatase 65 U/L (35-105); Anion Gap 26.6 (5-19); Aspartate Amino Transferase 25 U/L (0-32); Blood Urea Nitrogen 15 mg/dL (6-20); Calcium 10.0 mg/dL (8.5-10.5); Carbon Dioxide 18 mmol/L (22-29); Chloride 99 mmol/L (98-107); Creatinine Clr Calc Pharmacy 73.3216; Globulin 3.2 g/dL (1.3-4.6); Glucose 94 mg/dL (65-115); Lipase 16 U/L (13-60); Osmolality Calculated 291 mOsm/kg (285-295); Potassium 3.6 mmol/L (3.5-5.1); Sodium 140 mmol/L (136-145); Total Protein 8.2 g/dL (6.6-8.7)
[2024-10-16] MEDS: LORazepam 1 MG/0.5 ML injection 2 MG IVP (12:09)
[2024-10-16] MEDS: haloperidol inj 5 mg/mL INJ 1 mL 2.5 MG IVP (12:12)
[2024-10-16 12:15] VITALS: BP 101/61; PULSE 78; O2SAT 100
[2024-10-16 12:30] VITALS: PULSE 85; O2SAT 97
[2024-10-16 13:00] VITALS: PULSE 94; O2SAT 100
[2024-10-16 13:30] VITALS: BP 90/53; PULSE 84; O2SAT 100
[2024-10-16 13:53] LABS: Glucose Urine UA Negative (Normal); Nitrate Urine Negative (Negative); Specific Gravity, Urine 1.028 (1.005-1.030)
[2024-10-16 13:58] LABS: Add Urine Microscopic? YES
[2024-10-16 14:00] VITALS: BP 93/52; PULSE 82; O2SAT 98
== END 2024-10-16 14:00 | disposition home or self-care (01) ==
PROVIDERS: Physician Assistant; Emergency Provider Family Medicine; PCP Family Medicine
DX: K29.20 Alcoholic gastritis without bleeding (principal); F12.90 Cannabis use, unspecified, uncomplicated
CPT/HCPCS: 80053; 81001; 83690; 84703; 85025; 96374; 96375; 99284; J1630; J2060; J7030

== ENCOUNTER 2025-03-11 19:14 | Emergency (ER) | payer BC, SELFPAY ==
[2025-03-11] VITALS (14 sets, daily range): BP systolic 99–125; BP diastolic 60–77; PULSE 62–95; RESP 18–20; TEMP 36.3; O2SAT 90–100; BMI 22.6
--- NOTE | 2025-03-11 19:43 | CTR_ITS ---
PROCEDURE INFORMATION: Exam: CT Abdomen And Pelvis With Contrast Exam date and time: 03/11/2025 8:20 PM Age: 30 years old Clinical indication: Abdominal pain; Additional info: Mid abd pain, vomiting, diarrhea x24 hours, R/O ashlyn TECHNIQUE: Imaging protocol: Computed tomography of the abdomen and pelvis with contrast. Radiation optimization: All CT scans at this facility use at least one of these dose optimization techniques: automated exposure control; mA and/or kV adjustment per patient size (includes targeted exams where dose is matched to clinical indication); or iterative reconstruction. Contrast material: OMNI 350; Contrast volume: 100 ml; Contrast route: INTRAVENOUS (IV); COMPARISON: No relevant prior studies available. RADIATION DOSE METRICS: Total DLP (mGy-cm): 320.36 FINDINGS: Liver: Normal. No mass. Gallbladder and biliary ducts: Normal. No calcified stones. No ductal dilation. Pancreas: Normal. No ductal dilation. Spleen: Normal. No splenomegaly. Adrenal glands: Normal. No mass. Kidneys and ureters: Normal. No hydronephrosis. Stomach and bowel: Unremarkable. No obstruction. No mucosal thickening. Appendix: No evidence of appendicitis. Intraperitoneal space: Unremarkable. No free air. No significant fluid collection. Vasculature: Unremarkable. No abdominal aortic aneurysm. Lymph nodes: Unremarkable. No enlarged lymph nodes. Urinary bladder: Unremarkable as visualized. Reproductive: Unremarkable as visualized. Bones/joints: Unremarkable. No acute fracture. Soft tissues: Unremarkable. CT/CT abdomen pelvis w con* [id number] IMPRESSION: No acute findings.
--- NOTE | 2025-03-11 19:53 | ED_ITS ---
HPI - Nausea/Vomiting/Diarrhea 2 General: Chief complaint: Nausea/Vomiting/Diarrhea Stated complaint: n/v Time Seen by Provider: 03/11/25 19:37 History of Present Illness: 30-year-old female past medical history only significant for anxiety for which she takes as needed benzodiazepines, presenting to the emergency department with a 24-hour history of nausea, frequent vomiting, nonbloody diarrhea, 5 out of 10 mid abdominal pain, no fevers at home but did not take temperature, no urinary symptoms, last menstrual period 2 weeks ago, denies any drug use or alcohol abuse. Per chart review was seen for persistent vomiting 5 months ago in the setting of THC and alcohol use. Related Data Previous Rx's ?Medication ?Instructions ?Recorded ondansetron 4 mg disintegrating 4 mg PO Q8H PRN nausea and 07/12/22 tablet vomiting #7 tabs lorazepam 2 mg tablet (Ativan) 2 mg buccal TID PRN don sea and 10/16/24 vomiting #14 tabs olanzapine 10 mg disintegrating 10 mg PO DAILY PRN don sea and 10/16/24 tablet vomitting #20 tabs capsaicin 0.1 % topical cream 1 applic topical TID PRN abdominal 03/11/25 pain #42.5 grams famotidine 20 mg tablet (Pepcid) 20 mg PO BID 7 days # 14 tabs 03/11/25 ondansetron 8 mg disintegrating 8 mg PO Q8H PRN nausea and 03/11/25 tablet vomiting 5 days #20 tabs Allergies Allergy/AdvReac Type Severity Reaction Status Date / Time No Known Allergies Allergy Unverified 07/12/22 08:19 [facility] ED 2 PFSH: Medical History Acute viral syndrome Nausea & vomiting Physical Exam 2 Narrative: EXAM NARRATIVE: Gen: A&Ox4, patient appears ill, nontoxic HEENT: Normocephalic, atraumatic, no scleral icterus, external ears normal, dry mucous membranes Neck: Supple, full range of motion, no observable masses Lungs: No Respiratory distress, Lungs clear to auscultation bilaterally no rales, rhonchi, wheezing CV: Regular rate and rhythm, no murmur, no pitting edema to lower extremities bilaterally Abdomen: Soft, nondistended, tender to palpation to the right upper quadrant, epigastrium, periumbilical region, no specific right lower quadrant tenderness or McBurney point tenderness, negative Cole sign, no CVA tenderness MSK: No joint swelling, FROM all 4 extremities Skin: No rashes, petechiae, lesions. Normal color per patient. Neuro: Alert and oriented, no slurred speech, sensation and strength grossly intact all 4 extremities Psych: Appropriate for situation. Course 2 Reevaluation(s): Reevaluation #1: Patient reassessed at this time, still reporting pain and nausea, does report using marijuana most recently 5 days ago, suspect cannabinoid hyperemesis given normal labs and CT scan, still waiting for urine, will give additional medication for pain and attempt Haldol given presumed etiology, wait for urine, reassess for disposition Time: 20:47 Reevaluation #2: Patient with some improvement of her pain after morphine administration, workup showing evidence of ketosis secondary to vomiting with elevated white count, no an acute intra-abdominal surgical or infectious process, urinalysis without UTI, suspect cannabinoid hyperemesis given positive THC in urine versus nonspecific gastritis, recommend marijuana cessation, recommend as needed Zofran and Pepcid at home with follow-up with PCP and return precautions. Time: 22:26 Vital Signs: Vital signs: Vital Signs Temperature 97.4 F L 03/11/25 19:25 Pulse Rate 66 03/11/25 22:02 Respiratory Rate 18 03/11/25 19:59 Blood Pressure 100/61 03/11/25 22:02 Pulse Oximetry 99 03/11/25 22:02 Oxygen Delivery Me thod Room Air 03/11/25 22:02 MDM - Nausea/Vomiting/Diarrhea Medical Decision Making 30-year-old female past medical history significant for anxiety presenting the emergency department with 24-hour history of abdominal pain vomiting and diarrhea, no fever, patient appears hypovolemic on exam and in some distress, uncomfortable appearing but nontoxic, stable vital signs, was previously seen for THC and alcohol use 5 months ago but denies such use at this time, differential includes acute cholecystitis, cholelithiasis, gastritis, gastroenteritis, colitis, acute appendicitis, cannabinoid hyperemesis/alcohol use that patient is not being forthcoming about also a consideration, plan for labs, urinalysis, supportive care with fluids and GI cocktail, CT of the abdomen to assess for acute surgical or infectious intra-abdominal pathology, reassess for disposition. Lab Data Labs showing leukocytosis to 15, otherwise there is some acidosis to 17 with normal creatinine and normal electrolytes, mild hyperglycemia 147, negative, lipase normal, urinalysis with ketones but no UTI 03/11/25 19:50 03/11/25 19:50 Radiology Impressions Abdomen/Pelvis CT 03/11/25 19:43 IMPRESSION: No acute findings. Laboratory Results WBC 15.00 10^3/uL (3.29-11.43) H 03/11/25 19:50 RBC 4.86 10^6/uL (3.85-5.65) 03/11/25 19:50 Hgb 14.90 g/dL (11.27-16.99) 03/11/25 19:50 Hct 43.6 % (36-47) 03/11/25 19:50 MCV 89.7 fl (85-98) 03/11/25 19:50 MCH 30.7 pg (27-33) 03/11/25 19:50 MCHC 34.2 g/dL (30-55) 03/11/25 19:50 RDW 12.6 % (12.1-15.1) 03/11/25 19:50 Plt Count 271 10^3/cmm (157-399) 03/11/25 19:50 MPV 10.7 fL (7.4-10.4) H 03/11/25 19:50 Neut % (Auto) 81.5 % 03/11/25 19:50 Lymph % (Auto) 13.5 % 03/11/25 19:50 [place] % (Auto) 4.1 % 03/11/25 19:50 Eos % (Auto) 0.1 % 03/11/25 19:50 Baso % (Auto) 0.3 % 03/11/25 19:50 Neut # (Auto) 12.24 10^3/uL (1.8-7.7) H 03/11/25 19:50 Lymph # (Auto) 2.0 10^3/uL (0.8-4.8) 03/11/25 19:50 [place] # (Auto) 0.6 10^3/uL (0.2-0.9) 03/11/25 19:50 Eos # (Auto) 0.0 10^3/uL (0.0-0.8) 03/11/25 19:50 Baso # (Auto) 0.0 10^3/uL (0.0-0.1) 03/11/25 19:50 Nucleated RBC % (auto) 0 % 03/11/25 19:50 Nucleated RBCs # 0.0 /100WBC 03/11/25 19:50 Sodium 139 mmol/L (136-145) 03/11/25 19:50 Potassium 3.7 mmol/L (3.5-5.1) 03/11/25 19:50 Chloride 101 mmol/L (98-107) 03/11/25 19:50 Carbon Dioxide 17 mmol/L (22-29) L 03/11/25 19:50 Anion Gap 24.7 (5-19) H 03/11/25 19:50 BUN 13 mg/dL (6-20) 03/11/25 19:50 Creatinine 0.7 mg/dL (0.5-0.9) 03/11/25 19:50 GFR Calculation 98.9 mL/min (90-130) 03/11/25 19:50 Glucose 147 mg/dL (65-115) H 03/11/25 19:50 Calculated Osmolality 291 mOsm/kg (285-295) 03/11/25 19:50 Calcium 10.2 mg/dL (8.5-10.5) 03/11/25 19:50 Magnesium 1.7 mg/dL (1.7-2.3) 03/11/25 19:50 Total Bilirubin 1.8 mg/dL (0.15-1.2) H 03/11/25 19:50 AST 23 U/L (0-32) 03/11/25 19:50 ALT 16 U/L (0-33) 03/11/25 19:50 Alkaline Phosphatase 66 U/L (35-105) 03/11/25 19:50 Total Protein 7.8 g/dL (6.6-8.7) 03/11/25 19:50 Albumin 4.8 g/dL (3.5-5.2) 03/11/25 19:50 Globulin 3.0 g/dL (1.3-4.6) 03/11/25 19:50 Lipase 25 U/L (13-60) 03/11/25 19:50 HCG, Qual Negative (Negative) 03/11/25 19:50 Urine Color Yellow (Yellow) 03/11/25 21:16 Urine Appearance Clear (CLEAR) 03/11/25 21:16 Urine pH 6.5 (5-7) 03/11/25 21:16 Ur Specific [place] >= 1.099 (1.005-1.030) H 03/11/25 21:16 Urine Protein 1+ (Negative) A 03/11/25 21:16 Urine Glucose (UA) Negative (Normal) 03/11/25 21:16 Urine Ketones 3+ (Negative) H 03/11/25 21:16 Urine Blood Negative (Negative) 03/11/25 21:16 Urine Nitrate Negative (Negative) 03/11/25 21:16 Urine Bilirubin Negative (Negative) 03/11/25 21:16 Urine Urobilinogen 1.0 mg/dL (Negative) 03/11/25 21:16 Ur Leukocyte Esterase Negative (Negative) 03/11/25 21:16 Urine RBC 0-4 /hpf (0-2) H 03/11/25 21:16 Urine WBC 0-5 /hpf (0-5) 03/11/25 21:16 Ur Squamous Epith Cells 0-5 /hpf (0-5) 03/11/25 21:16 Amorphous Sediment Not Reportable 03/11/25 21:16 Urine Bacteria None seen /hpf (NONE) 03/11/25 21:16 Hyaline Casts 0-4 /lpf H 03/11/25 21:16 Urine Opiates Screen Negative ng/mL (Negative) 03/11/25 21:16 Ur Barbiturates Screen Negative ng/mL (Negative) 03/11/25 21:16 Ur Phencyclidine Scrn Negative ng/mL (Negative) 03/11/25 21:16 Ur Amphetamines Screen Negative ng/mL (Negative) 03/11/25 21:16 U Benzodiazepines Scrn Negative ng/mL (Negative) 03/11/25 21:16 Urine Cocaine Screen Negative ng/mL (Negative) 03/11/25 21:16 U Marijuana (THC) Screen Positive ng/mL (Negative) H 03/11/25 21:16 All radiology interpretation(s) finalized by discharge ED provider radiology interpretation(s): CT scan with no acute intra-abdominal pathology Discharge Plan Discharge Patient Disposition: Home Clinical Impression: Gastroenteritis, Cannabinoid hyperemesis syndrome Condition: Stable Prescriptions: New ondansetron 8 mg tablet,disintegrating 8 mg PO Q8H PRN (Reason: nausea and vomiting) 5 Days Qty: 20 0RF famotidine [Pepcid] 20 mg tablet 20 mg PO BID 7 Days Qty: 14 0RF capsaicin 0.1 % cream 1 applic topical TID PRN (Reason: abdominal pain) Qty: 42.5 0RF Rx Instructions: do not wash area for at least 30 min after application, apply around the belly button, wash hands after application No Action ondansetron 4 mg tablet,disintegrating 4 mg PO Q8H PRN (Reason: nausea and vomiting) Qty: 7 0RF lorazepam [Ativan] 2 mg tablet 2 mg buccal TID PRN (Reason: nausea and vomiting) Qty: 14 0RF olanzapine 10 mg tablet,disintegrating 10 mg PO DAILY PRN (Reason: nausea and vomitting) Qty: 20 0RF Discharge Orders: Discharge ED (Routine); Ordered 03/11/25 Ordered By: Reed Rivera Referrals: Dax Guzman MD [Primary Care Provider, Family Practice] Patient Instructions: Patient Portal & Tawanna Instructions, Marijuana Abuse, Gastritis (ED) Activity Restrictions/Additional Instructions: You were seen in the emergency department for abdominal pain and recurrent vomiting. Your workup showed evidence of dehydration secondary to the vomiting, your imaging of your abdomen did not show any acute problems that would explain your symptoms and your urinalysis did not show evidence of infection. At this time I suspect that your vomiting and abdominal pain are related to marijuana use, cannabinoid hyperemesis syndrome is a common disorder that occurs in young otherwise healthy people that use marijuana, it is not directly related to the marijuana use but a change in your brains neuro receptors that can occur with exposure to THC products. I recommend you abstain from any marijuana use as I suspect this will improve your symptoms, follow-up with your primary care doctor for further evaluation as if your symptoms do not improve with cessation of marijuana use may you may require referral to a gas scrubber operator for further workup. Print Language: German Coding Level of Care Code ED Silver Recovery Operator for Greg Avina
[2025-03-11] MEDS: ondansetron 2 mg/ML SDV 2 mL 4 MG IVP (19:54)
[2025-03-11 19:55] LABS: Hematocrit 43.6 % (36-47); Hemoglobin 14.90 g/dL (11.27-16.99); Mean Corpuscular HGB Conc 34.2 g/dL (30-55); Mean Corpuscular Hemoglobin 30.7 pg (27-33); Mean Corpuscular Volume 89.7 fl (85-98); Nucleated Red Blood Cells % 0 %; Platelet Count 271 10^3/cmm (157-399); Red Blood Count 4.86 10^6/uL (3.85-5.65); White Blood Count 15.00 10^3/uL (3.29-11.43)
[2025-03-11 20:11] LABS: HCG, Serum Qual Negative (Negative)
[2025-03-11 20:12] LABS: Alanine Aminotransferase 16 U/L (0-33); Albumin Level 4.8 g/dL (3.5-5.2); Alkaline Phosphatase 66 U/L (35-105); Aspartate Amino Transferase 23 U/L (0-32); Blood Urea Nitrogen 13 mg/dL (6-20); Calcium 10.2 mg/dL (8.5-10.5); Carbon Dioxide 17 mmol/L (22-29); Chloride 101 mmol/L (98-107); Globulin 3.0 g/dL (1.3-4.6); Glucose 147 mg/dL (65-115); Lipase 25 U/L (13-60); Magnesium 1.7 mg/dL (1.7-2.3); Osmolality Calculated 291 mOsm/kg (285-295); Sodium 139 mmol/L (136-145); Total Protein 7.8 g/dL (6.6-8.7)
[2025-03-11 20:20] LABS: Anion Gap 24.7 (5-19); Potassium 3.7 mmol/L (3.5-5.1)
--- OUTSIDE RECORDS SUMMARY | 2025-03-11 20:22 | XMS_ITS | Continuity of Care Document ---
Author Organization [facility] [place] Carr[place], [facility] ([facility]) Address [address] [address] Care Team Providers Care Glass Checker Name Role Phone NANCY GUZMAN Primary Care Provider Assessment Encounter Date Assessment Date Assessment LastModified by Organization Details LastModified Time 12/31/2024 12/31/2024 29-year-old female with a history of anxiety disorder and depressive disorder presenting with persistent exhaustion and sleep disturbances following an increase in sertraline dosage, suggesting potential side effects requiring adjustment in treatment for optimal symptom control. [email or web address] Not available 12/31/2024 17:23:40 Plan of Treatment Reminders Order Date Submit Date Provider Last Modified By Organization Details Last Modified Time Details Appointments None recorded. Lab None recorded. Referral None recorded. Procedures None recorded. Surgeries None recorded. Imaging None recorded. Medication Orders buspirone 10 mg tablet 2024 025 [facility] [place][id number], [address] [facility], [facility], [place], [address], 17:21:42 sertraline 100 mg tablet 2024 025 [facility] [place] #[id number], [address] [facility] [address], [facility], [place], [address], 17:21:43 Patient TargetsNo targets recorded. Patient Instructions Encounter Date Encounter Id Patient Instructions Last Modified By Organization Details Last Modified Time 12/31/2024 [id number] - Take sertralin e 100 mg daily. - Begin buspirone as discussed and monitor symptoms. - Consider hydroxyzine at night if sleeping problems continue. - Return in one month for follow-up or earlier if symptoms worsen or concerns arise. - Report any new or worsening symptoms, especially regarding sleep, dizziness, or mood. [email or web address] Not available 12/31/2024 17:23:41 I discussed with the patient the potential benefits and risks of adjusting her sertraline dosage back to 100 mg due to the side effects such as daytime fatigue and sleep disruption. I proposed adding buspirone to specifically manage her anxiety symptoms. We reviewed alternative augmentation options, including Abilify, and discussed using hydroxyzine as a potential aid if her sleep-related issues persist. The importance of monitoring her response and ensuring medication tolerance, alongside symptomatic improvement, was emphasized. I advised on scheduling a follow-up appointment in one month to evaluate her progress and make further decisions based on her response to these medication adjustments. [email or web address] Not available 12/31/2024 17:23:41 Reason for Referral None Reported. Problems Name Problem SNOMED Code Status Onset Date Resolution Date Notes Provider Name and Address Organization Details Recorded Time Anxiety 92606787 Active 2024 Nancy Guzman MD [address] [place] [address], [phone], [facility] 17:14:09 Depressive disorder 08348403 Active 2024 Nancy Guzman MD [address] [place] [address], [phone], [facility], L[facility]LC[facility]inaCC[facility] 17:14:11 Abdominal pain 25335565 Active 2024 [facility] 17:29:40 Irregular bowel habits 163189467 Active 2024 [facility] 12:18:11 Allergy to food 597819723 Active 2024 Cristy toscano [facility] LDannie 5 12:18:21 Gastritis 2889254 Active 2024 Cristy Rafat toscano [facility], [place] 5 12:18:04 Chronic tension-type headache 203884105 Active 2024 YAMILKA JOSÉ MIGUEL Luther [facility], [place] 5 16:37:37 Gastroesophage al reflux disease without esophagitis 454108973 Active 2024 Nancy Guzman MD [address] [place] [address], [phone], [facility], [place] 5 10:43:52 Problem Notes None recorded. Procedures Surgical History Date Name Laterality Status Provider Name and Address Organization Details Recorded Time 5 Date of Last [facility]2024 16:54:37 colonoscopy completed RAFIQ CESAR [facility], [place] 07/14/2024 13:21:22 [facility] 11:38:02 Imaging Results None recorded. Procedure Notes None recorded. Medical Equipment None Reported. Allergies No known drug allergies Medications Name Sig Start Date Stop Date Status Note LastModified by Organization Details LastModified Time sertralin e 100 mg tablet Take 1 tablet every day by oral route. 2024 active Not Available Not Available Not Daren pena butalbita l-acetami nophen-ca ffeine 50 mg-325 mg-40 mg tablet TAKE 1 TABLET BY MOUTH EVERY 4 HOURS NEEDED active Not Available Not Available No t Available lorazepam 2 mg tablet TAKE 1 TABLET OR DISSOLVE IN MOUTH THREE TIMES DAILY NEEDED FOR NAUSEA AND VOMITING 12/31 completed Not Available Not Available Not Available buspirone 10 mg tablet TAKE 1 TABLET BY MOUTH TWICE A DAY 2024 active Not Available Not Available Not Avfarshad pena olanzapin e 10 mg disintegr ating tablet DISSOLVE 1 TABLET ON TONGUE DAILY NEEDED FOR NAUSEA AND VOMITTIN G 12/31 completed Not Available Not Available Not Available omeprazol e 20 mg capsule,d elayed [...] Not Available Vitals Date Recorded Body height Oxygen saturation Heart rate Respiratory rate Body temperature Systolic And Diastolic Provider Name and Address Organization Details Last Updated DateTime 156.21 cm 98 % 77 /min 16 /min 97.7 [degF] 100/64 mm[Hg] Cristy Douglass [facility] 16:53:25 Social History Question Answer Notes LastModified by Organizat ion Details LastModified Time Tobacco Smoking Status Former Smoker Cristy toscano [facility] 06/09/2024 17:20:53 What Is Your Level Of Caffeine Consumption? Heavy [email or web address] Information not available 12/31/2024 Which Illicit Or Recreational Drugs Have You Used? Medical Marijuana [email or web address] Information not available 06/09/2024 When Did You Quit Smoking? 1-5yearssincel astcigarette 2021 [email or web address] Information not available 12/31/2024 What Type Of Marijuana Have You Used? Edibles [email or web address] Information not available 12/31/2024 Do You Or Have You Ever Used Marijuana? Current Some Days User [email or web address] Information not available 12/31/2024 What Was The Date Of Your Most Recent Tobacco Screening? 12/02/2024 [email or web address] Information not available 12/02/2024 What Is Your Current Pack Years? 10packyears [email or web address] Information not available 06/09/2024 Was Your Marijuana Use Recreational Or Medical? Medical [email or web address] Information not available 12/31/2024 At What Age Did You Start Smoking Tobacco? 17 [email or web address] Information not available 12/31/2024 Have You Used IV Drugs? No [email or web address] Information not available 12/31/2024 Sex: Unknown Functional Status Question Answer Note LastModified by Organizat ion Details LastModified Time How many times per week do you consume alcohol? Less than 1 time per week Information not available 09/02/2024 Do you use any illicit or recreational drugs? Yes [email or web address] Information not available 06/09/2024 What is your level of alcohol consumption? Occasional [email or web address] Information not available 06/09/2024 Mental Status None recorded. Family History Relationship Description Onset Age of this Age Resolved Age Notes LastModified by Organization Details LastModified Time Father No current problems or disability [email or web address] Not available 07/2024 17:31:05 Mother No current problems or disability Not available 07/2024 17:31:05 Mother Disorder of thyroid gland 7 OF HER MOTHER S FAMILY MEMBER S [email or web address] Not available 06/09/2024 17:32:00 Unspecified Relation Malignant neoplasm of colon matern al great Aunt, Matern [...] Details Recorded Time IPV 11/01/2000 completed RAFIQ toscano [facility] 06/23/2024 17:37:24 MMR 11/01/2000 completed RAFIQ toscano [facility] 06/23/2024 17:37:24 MMR 03/12/1997 completed RAFIQ toscano [facility] 06/23/2024 17:37:24 COVID-19 vaccine, vector-nr, [id number], PF, 0.5 mL 04/17/2021 completed RAFIQ toscano [facility] 06/23/2024 17:37:24 Tdap 11/14/2009 completed RAFIQ toscano [facility] 06/23/2024 17:37:24 Tdap 12/09/2015 completed RAFIQ toscano [facility] 06/23/2024 17:37:24 DTP 1996 completed RAFIQ toscano [facility] 06/23/2024 17:37:24 DTP 12/30/1997 completed RAFIQ toscano [facility] 06/23/2024 17:37:24 Hep B, unspecified formulation 1996 completed RAFIQ toscano [facility] 06/23/2024 17:37:24 Hep B, unspecified formulation 1996 completed RAFIQSILVIA FAUSTY null, [facility] 06/23/2024 17:37:24 Hep B, unspecified formulation 03/12/1997 completed RAFIQSILVIA FAUSTY null, [facility] 06/23/2024 17:37:24 OPV, trivalent 12/30/1997 completed RAFIQ KERR null, [facility] 06/23/2024 17:37:24 polio, unspecified formulation 1996 completed RAFIQ CESAR null, [facility] 06/23/2024 17:37:25 polio, unspecified formulation 1996 completed RAFIQ CESAR null, [facility] 06/23/2024 17:37:25 DTP-Hib 1996 completed RAFIQ CESAR null, [facility] 06/23/2024 17:37:25 DTP-Hib 1996 completed RAFIQ CESAR null, [facility] 06/23/2024 17:37:25 Hib (PRP-T) 1996 completed RAFIQ CESAR null, [facility] 06/23/2024 17:37:25 Hib (PRP-T) 12/30/1997 completed RAFIQ CESAR null, [facility] 06/23/2024 17:37:25 DTaP 11/01/2000 completed RAFIQ CESAR null, [facility] 06/23/2024 17:37:25 Influenza, split virus, quadrivalent, PF 01/18/2016 completed RAFIQ CESAR null, [facility] 06/23/2024 17:37:25 Past Encounters Encounter ID Performer Location Encounter Start Date Encounter Closed Date Diagnosis/Indication Diagnosis SNOMED-CT Code Diagnosis ICD10 Code Diagnosis IMO Codes Diagnosis Note [id number] Nancy Guzman MD [facility] ([facility]) [address] [place] [address] 12/02/2024 16:33:23 12/02/2024 17:01:04 Depressive disorder 78355139 F32.A Will increase the sertraline dose to 100 mg. Gastroesop hageal reflux disease without esophagitis 116679907 K21.9 052189 Symptoms are managed well with omeprazole . [id number] Nancy Guzman MD [facility] ([facility]) [address] [place] [address] 12/31/2024 16:47:25 01/01/2025 08:04:54 Anxiety 72888652 F41.9 - Add buspirone for anxiety relief. - Evaluate response in one month. Depressive disorder 3548 9007 F32.A - Reduce sertraline dose to 100 mg. - Consider buspirone addition for better anxiety management . - Discussed possibilit y of Abilify addition, pending need. - Possible hydroxyzin e prescripti on for sleep issues. - Follow-up in one month for evaluation . Health Concerns Section Related Observation LastModified by Organization Detai ls LastModified Time None Recorded Concern Status LastModified by Organization Details LastModified Time None Recorded Payers Encounter Date Sequence Insurance Name Policy Number Policy Renee Covered Member ID Renee Member ID Guarantor Name 12/31/2024 1 [employer] [id number] Génesis Alicea [id number] Génesis Hidalgo Notes Date Note Type Note Provider Name and Address Organization Details Recorded Time 12/31/2024 text/html Anxiety/Depressi onRep orted by PatientHPIFor context, patient reportsmajor life stressors. For severity, patient reportsdenies suicidal ideations,able to maintain relationships, anddoes not interfere with activities of daily living(she has problems staying on task). For modifying factors, patient reportssocial support. For associated symptoms, patient reportsdenies homicidal ideations,no significant weight gain,no significant weight loss, andno feelings of worthlessness. The patient is a 29-year-old female presenting for follow-up on her treatment of anxiety disorder and depressive disorder. Over the past month, after increasing her sertraline dosage to 150 mg, she has experienced persistent exhaustion, morning drowsiness, and frequent nighttime awakenings about hourly. She has also noted episodes of dizziness and lightheadedness when standing. Nancy Guzman MD [address] [place] [address], [phone], [facility] 01/03/2025 09:24:59 OBGyn Episode No OBEpisode recorded.
--- OUTSIDE RECORDS SUMMARY | 2025-03-11 20:22 | XMS_ITS | Data Portability ---
Author Organization [facility], [facility] Address [address] [place] [address] CONNER ANDERSEN [id number] Care Team Providers Care Field Mechanic/Site Lead Name Role Phone NANCY GUZMAN Primary Care Provider Assessment Encounter Date Assessment Date Assessment LastModified by Organization Details LastModified Time 08/18/2024 08/18/2024 Repeat colonoscopy in 5 years due to family history Not available 10/04/2024 01:14:36 12/31/2024 12/31/2024 29-year-old female with a history [...] Modified Time Details Appointments None recorded. Lab urinalysis, complete 2024 025 [facility], [address], [address], [place], [address], 17:48:33 culture, urine 2024 025 [email or web address] [facility], [address] [place] [address], [address] [place], [address], 00:00:18 urinalysis, complete 2024 025 [facility], [address], [address], [place], [address], 17:55:27 Referral None recorded. Procedures None recorded. Surgeries None recorded. Imaging None recorded. Medication Orders buspirone 10 mg tablet 2024 [id number], [address], [address], [place], [address], 17:21:42 sertraline 100 mg tablet 2024 [id number], [address], [address], [place], [address], 17:21:43 sertraline 100 mg tablet 2024 [id number], [address], [address], [place], [address], 16:52:13 omeprazole 20 mg capsule,del ayed release 2024 [facility] 15, [address], [place], [address], 20:44:58 sertraline 100 mg tablet 2024 [facility] 15, [address], [place], [address], 17:07:36 Macrobid 100 mg capsule 2024 [facility] 15, [address], [place], [address], 16:50:02 Patient TargetsNo targets recorded. Patient Instructions Encounter Date Encounter Id Patient Instructions Last Modified By Organization Details Last Modified Time 12/31/2024 [id number] - Take sertralin e 100 mg daily. [...] 12/31/2024 17:23:41 Reason for Referral None Reported. Results Created Date Observation Date Name Description Value Unit Range Abnormal Flag Note LastModifiedBy Organization Detail LastModifiedTime 07/22/19 25 07/29/2024 THINP REP TIS PAP REFLE X HPV MRNA E6/E7 , CHLAM YDIA/ N.MARLEN ORRHO EAE clinical information: normal Janna l exam Not Available [address], [address], 07/29/2024 20:23:39 07/22/19 25 07/29/2024 THINP REP TIS PAP REFLE X HPV MRNA E6/E7 , CHLAM YDIA/ N.MARLEN ORRHO EAE LMP: normal NONE GIVEN Not Available [facility] [address] [place], [address], 07/29/2024 20:23:39 07/22/19 25 07/29/2024 THINP REP TIS PAP REFLE X HPV MRNA E6/E7 , CHLAM YDIA/ N.MARLEN ORRHO EAE prev. Pap: normal NONE GIVEN Not Available [address], [address], 07/29/2024 20:23:39 07/22/19 25 07/29/2024 THINP REP TIS PAP REFLE X HPV MRNA E6/E7 , CHLAM YDIA/ N.MARLEN ORRHO EAE prev. BX: normal NONE GIVEN Not Available [address] [address] [place], [address], 07/29/2024 20:23:39 07/22/19 25 07/29/2024 THINP REP TIS PAP REFLE X HPV MRNA E6/E7 , CHLAM YDIA/ N.MARLEN ORRHO EAE source: normal Cervi x, Endoc ervix Not Available [address] [address] [place], [address], 07/29/2024 20:23:39 07/22/19 25 07/29/2024 THINP REP TIS PAP REFLE X HPV MRNA E6/E7 , CHLAM YDIA/ N.MARLEN ORRHO EAE statement of adequacy: normal Satis facto ry for evalu ation . Endoc ervic al/tr ansfo rmati on zone compo nent prese nt. Age and/o r menst rual statu s not provi ded Not Available [address] [place], [address], 07/29/2024 20:23:39 07/22/19 25 07/29/2024 THINP REP TIS PAP REFLE X HPV MRNA E6/E7 , CHLAM YDIA/ N.MARLEN ORRHO EAE general categorizati on: abnormal Cytol ogy Resul ts: Epith elial Cell Abnor malit y Not Available [address] [address] [place], [address], 07/29/2024 20:23:39 07/22/19 25 07/29/2024 THINP REP TIS PAP REFLE X HPV MRNA E6/E7 , CHLAM YDIA/ N.MARLEN ORRHO EAE interpretati on/result: abnormal Atypi desirae Squam ous Cells of Undet ermin ed Signi fican ce (ASC- [place]) Not Available [address] [address] [place], [address], 07/29/2024 20:23:39 07/22/19 25 07/29/2024 THINP REP TIS PAP REFLE X HPV MRNA E6/E7 , CHLAM YDIA/ N.MARLEN ORRHO EAE comment: normal This Pap test has been evalu ated with compu ter cindy magdalena techn ology . Sugge st clini desirae corre latio n and follo w-up as clini joyce appro priat e Not Available [address] [address] [place], [address], 07/29/2024 20:23:39 07/22/19 25 07/29/2024 THINP REP TIS PAP REFLE X HPV MRNA E6/E7 , CHLAM YDIA/ N.MARLEN ORRHO EAE cytotechnolo gist: normal PCM, CT( CP) CT Scree celestino Locat ion: [address] [address] [place] [address] Not Available [address] [address] [place], [address], 07/29/2024 20:23:39 07/22/19 25 07/29/2024 THINP REP TIS PAP REFLE X HPV MRNA E6/E7 , CHLAM YDIA/ N.MARLEN ORRHO EAE pathologist: normal Janna valiente M.D., Board Certi fied in Anato ruiz Patho logy and Cytop athol ogy. Phone : [phone] (elec troni c signa ture) Not Available [address] [address] [place], [address], 07/29/2024 20:23:39 07/22/19 25 07/29/2024 THINP REP [...] soto and curre nt clini desirae infor fer n. Not Available [facility] [address] [address] [place], [address], 07/29/2024 20:23:39 07/22/19 25 07/29/2024 THINP REP TIS PAP REFLE X HPV MRNA E6/E7 , CHLAM YDIA/ N.MARLEN ORRHO EAE chlamydia trachomatis RNA, tma, urogenital NOT DETECT ED not detect ed normal Not Available [address] [address] [place], [address], 07/29/2024 20:23:39 07/22/19 25 07/29/2024 THINP REP TIS PAP REFLE X HPV MRNA E6/E7 , CHLAM YDIA/ N.MARLEN ORRHO EAE neisseria gonorrhoeae RNA, tma, urogenital NOT DETECT ED not detect ed normal Not Available [facility] [address] [address] [place], [address], 07/29/2024 20:23:39 07/22/19 25 07/29/2024 THINP REP [...] e refer to https ://ed ucati on.qu gracie batistaElementsLocal tics. com/f aq/FA Q154 (This link is being provi ded for infor matio n/ educa wesly l purpo ses only. ) Not Available [facility] [address] [place], [address], 07/29/2024 20:23:39 07/22/19 25 07/29/2024 HPV MRNA [...] infor shadi ruelas e refer to http: //[facility] kerry amaya stdia gnost ics.c om/fa q/FAQ 129v1 (This link if provi ded for infor fer sanz/ educa wesly l purpo ses only. ) Not Available [facility] [address] , [place], [address], 07/29/2024 20:23:40 08/19/19 25 08/18/2024 URINA LYSIS WITH MICRO color RED Not Available [facility] [address] [facility] [address], [place], [address], 08/18/2024 17:55:27 08/19/19 25 08/18/2024 URINA LYSIS WITH MICRO clarity CLOUDY Not Available [facility] [address] [facility] [address], [place], [address], 08/18/2024 17:55:27 08/19/19 25 08/18/2024 URINA LYSIS WITH MICRO glu 2+ Not Available [facility] [address], [place], [address], 08/18/2024 17:55:27 08/19/19 25 08/18/2024 URINA LYSIS WITH MICRO bili 2+ Not Available [facility] [address], [place], [address], 08/18/2024 17:55:27 08/19/19 25 08/18/2024 URINA LYSIS WITH MICRO ket 1+ Not Available [facility] [address], [place], [address], 08/18/2024 17:55:27 08/19/19 25 08/18/2024 URINA LYSIS WITH MICRO S.g 1.020 1.005- 1.025 Not Available [facility] [address], [place], [address], 08/18/2024 17:55:27 08/19/19 25 08/18/2024 URINA LYSIS WITH MICRO pH 5.0 5.0-7. 0 Not Available [facility] [address], [place], [address], 08/18/2024 17:55:27 08/19/19 25 08/18/2024 URINA LYSIS WITH MICRO pro 3+ Not Available [facility] [address], [place], [address], 08/18/2024 17:55:27 08/19/19 25 08/18/2024 URINA LYSIS WITH MICRO uro >=8.0 E.U./D L Not Available [facility] [address], [place], [address], 08/18/2024 17:55:27 08/19/19 25 08/18/2024 URINA LYSIS WITH MICRO nit POSITI VE Not Available [facility] [address], [place], [address], 08/18/2024 17:55:27 08/19/19 25 08/18/2024 URINA LYSIS WITH MICRO blo 3+ Not Available [facility] [address] [facility] [address], [place], [address], 08/18/2024 17:55:27 08/19/19 25 08/18/2024 URINA LYSIS WITH MICRO red 3+ Not Available [facility] [address] [facility] [address], [place], [address], 08/18/2024 17:55:27 08/19/19 25 08/18/2024 URINA LYSIS WITH MICRO WBC 100> Not Available [facility] [address] [facility] [address], [place], [address], 08/18/2024 17:55:27 08/19/19 25 08/18/2024 URINA LYSIS WITH MICRO RBC 100> Not Available [facility] [address] [facility] [address], [place], [address], 08/18/2024 17:55:27 08/19/19 25 08/18/2024 URINA LYSIS WITH MICRO epi cells 20-25 Not Available [facility] [address] [facility] [address], [place], [address], 08/18/2024 17:55:27 08/19/19 25 08/18/2024 URINA LYSIS WITH MICRO bacteria 1+ MIXED HA Not Available [facility] [address] [facility], [place], [address], 08/18/2024 17:55:27 08/19/19 25 08/18/2024 URINA LYSIS WITH MICRO other NEGATI VE Not Available [facility] [address] [facility] [address], [place], [address], 08/18/2024 17:55:27 08/19/19 25 08/20/2024 CULTU RE, URINE , ROUTI NE culture, urine, routine SEE NOTE CULTU RE, URINE , ROUTI NE Micro Numbe r: [id number] Test Statu s: Final Speci men [...] Tube, is recom seun d. Not Available [facility] [address] [place], [address], 08/21/2024 00:00:17 09/03/1909/02/2024 URINA LYSIS WITH MICRO color YELLOW Not Available [facility] [address] [facility] [address], [place], [address], 09/02/2024 17:48:33 09/03/19 25 09/02/2024 URINA LYSIS WITH MICRO clarity CLEAR Not Available [facility] [address] [facility] [address], [place], [address], 09/02/2024 17:48:33 09/03/1909/02/2024 URINA LYSIS WITH MICRO glu NEGATI VE Not Available [facility] [address] [facility] [address], [place], [address], 09/02/2024 17:48:33 09/03/19 25 09/02/2024 URINA LYSIS WITH MICRO bili NEGATI VE Not Available [facility] [address] [facility] [address], [place], [address], 09/02/2024 17:48:33 09/03/19 25 09/02/2024 URINA LYSIS WITH MICRO ket NEGATI VE Not Available [facility] [address], [place], [address], 09/02/2024 17:48:33 09/03/19 25 09/02/2024 URINA LYSIS WITH MICRO S.g 1.025 1.005- 1.025 Not Available [facility] [address], [place], [address], 09/02/2024 17:48:33 09/03/19 25 09/02/2024 URINA LYSIS WITH MICRO pH 6.5 5.0-7. 0 Not Available [facility] [address], [place], [address], 09/02/2024 17:48:33 09/03/19 25 09/02/2024 URINA LYSIS WITH MICRO pro NEGATI VE Not Available [facility] [address], [place], [address], 09/02/2024 17:48:33 09/03/19 25 09/02/2024 URINA LYSIS WITH MICRO uro 0.2 E.U./D L Not Available [facility] [address], [place], [address], 09/02/2024 17:48:33 09/03/19 25 09/02/2024 URINA LYSIS WITH MICRO nit NEGATI VE Not Available [facility] [address], [place], [address], 09/02/2024 17:48:33 09/03/19 25 09/02/2024 URINA LYSIS WITH MICRO blo NEGATI VE Not Available [facility] [address], [place], [address], 09/02/2024 17:48:33 09/03/19 25 09/02/2024 URINA LYSIS WITH MICRO red TRACE Not Available [facility] [address] [facility] [address], [place], [address], 09/02/2024 17:48:33 09/03/19 25 09/02/2024 URINA LYSIS WITH MICRO WBC 10-12 Not Available [facility] [address] [facility] [address], [place], [address], 09/02/2024 17:48:33 09/03/19 25 09/02/2024 URINA LYSIS WITH MICRO RBC 2-3 Not Available [facility] [address] [facility] [address], [place], [address], 09/02/2024 17:48:33 09/03/19 25 09/02/2024 URINA LYSIS WITH MICRO epi cells 25-30 Not Available [facility] [address] [facility] [address], [place], [address], 09/02/2024 17:48:33 09/03/19 25 09/02/2024 URINA LYSIS WITH MICRO bacteria TRACE OF MIXED HA Not Available [facility] [address] [facility] [address], [place], [address], 09/02/2024 17:48:33 09/03/1909/02/2024 URINA LYSIS WITH MICRO other NEGATI VE Not Available [facility] [address] [facility] [address], [place], [address], 09/02/2024 17:48:33 Result Notes None recorded. Problems Name Problem SNOMED Code Status Onset Date Resolution Date Notes Provider Name and Address Organization Details Recorded Time Anxiety 00160668 Active 2024 Nancy Guzman MD [address] [place] [address], [address], [facility] [facility] 09/25[facility]202 5 17:14:09 Depressive disorder 38301529 Active 2024 Nancy Guzman MD [address] [place], [address], [facility], L[facility]LC[facility]ina[facility] 5 17:14:11 Abdominal pain 17603522 Active 2024 Cristy toscano [facility], TramLCarolinaCCarolina 5 17:29:40 Irregular bowel habits 126413212 Active 2024 Cristy toscano [facility], AnabellCCarolina 5 12:18:11 Allergy to food 096056667 Active 2024 Cristy toscano [facility], TramLCarolinaCCarolina 5 12:18:21 Gastritis 7920312 Active 2024 Cristy toscano [facility], TramLCarolinaCCarolina 5 12:18:04 Chronic tension-type headache 160559136 Active 2024 YAMILKA Luther [facility], LCarolinaLCarolinaCCarolina 5 16:37:37 Gastroesophage al reflux disease without esophagitis 774064977 Active 2024 Nancy Guzman MD [address] [place], [address], [facility], TramLCarolinaCCarolina 5 10:43:52 Problem Notes None recorded. Procedures Surgical History Date Name Laterality Status Provider Name and Address Organization Details Recorded Time 5 Date of Last Pap Smear completed LOBO GUADARRAMA [facility] [place], In[place] 07/20/2024 16:54:37 colonoscopy completed RAFIQ CESAR [facility], TramLCony 07/14/2024 13:21:22 ligation of fallopian tube completed LOBO GUADARRAMA [facility], LCarolinaLCony 06/08/2024 11:38:02 Imaging Results None recorded. Procedure Notes None recorded. Medical Equipment None Reported. Allergies No known drug allergies Medications Name Sig Start Date Stop Date Status Note LastModified by Organization Details LastModified Time sertralin e 100 mg tablet Take 1 tablet every day by oral route. 2024 active Not Available Not Available Not Avai lable butalbita l-acetami nophen-ca ffeine 50 mg-325 mg-40 [...] active Not Available Not Available Not Avai lable olanzapin e 10 mg disintegr ating tablet [...] Updated DateTime 5 156.21 cm 23.5 kg/m2 76545.4 4 g 18 /min 98.9 [degF] 120/72 mm[Hg] YAMILKA YOUNGER [facility] LCarolinaLCony 5 16:46:00 Date Recorded Body height Body mass index (BMI) Body weight Body temperature Oxygen saturation Heart rate Systolic And Diastolic Provider Name and Address Organization Details Last Updated DateTime 5 156.21 cm 23.4 kg/m2 81623.6 4 g 97.8 [degF] 99 % 88 /min 116/68 mm[Hg] [facility] 5 16:48:05 Date Recorded Body height Body mass index (BMI) Body weight Body temperature Oxygen saturation Heart rate Systolic And Diastolic Provider Name and Address Organization Details Last Updated DateTime 5 156.21 cm 23.8 kg/m2 95597.8 2 g 97.8 [degF] 98 % 73 /min 100/64 mm[Hg] [facility] 5 16:37:29 Date Recorded Body height Oxygen saturation Heart rate Respiratory rate Body temperature Systolic And Diastolic Provider Name and Address Organization Details Last Updated DateTime 156.21 cm 98 % 77 /min 16 /min 97.7 [degF] 100/64 mm[Hg] Cristy Douglass [facility] 16:53:25 Social History Question Answer Notes LastModified by Organizat ion Details LastModified Time Tobacco Smoking Status Former Smoker Cristy Douglass [facility] 06/09/2024 17:20:53 What Is Your Level Of Caffeine Consumption? Heavy [email or web address] Information not available 12/31/2024 Which Illicit Or Recreational Drugs Have You Used? Medical Marijuana [email or web address] Information not available 06/09/2024 When Did You Quit Smoking? 1-5yearssincel astcigarette 2021 [email or web address] Information not available 12/31/2024 What Type Of Marijuana Have You Used? Edibles [email or web address] Information not available 12/31/2024 Do You Or Have You Ever Used Marijuana? Current Some Days User [email or web address] Information not available 12/31/2024 What Was The Date Of Your Most Recent Tobacco Screening? 12/02/2024 [email or web address] Information not available 12/02/2024 What Is Your Current Pack Years? [email or web address] Information not available 06/09/2024 Was Your Marijuana Use Recreational Or Medical? Medical Information not available 12/31/2024 At What Age Did You Start Smoking Tobacco? 17 [email or web address] Information not available 12/31/2024 Have You Used IV Drugs? No [email or web address] Information not available 12/31/2024 Sex: Unknown Functional Status Question Answer Note LastModified by Organizat ion Details LastModified Time How many times per week do you consume alcohol? Less than 1 time per week [email or web address] Information not available 09/02/2024 Do you use any illicit or recreational drugs? Yes [email or web address] Information not available 06/09/2024 What is your level of alcohol consumption? Occasional [email or web address] Information not available 06/09/2024 Mental Status None recorded. Family History Relationship Description Onset Age of this Age Resolved Age Notes LastModified by Organization Details LastModified Time Father No current problems or disability [email or web address] Not available 07/2024 17:31:05 Mother No current problems or disability [email or web address] Not available 07/2024 17:31:05 Mother Disorder of thyroid gland 7 OF HER MOTHER S FAMILY MEMBER S [email or web address] Not available 06/09/2024 17:32:00 Unspecified Relation Malignant [...] Recorded Time IPV 11/01/2000 completed RAFIQ toscano [facility] 06/23/2024 17:37:24 MMR 11/01/2000 completed RAFIQ toscano [facility] 06/23/2024 17:37:24 MMR 03/12/1997 completed RAFIQ toscano [facility] L.L.CCarolina 06/23/2024 17:37:24 COVID-19 vaccine, vector-nr, rS-Ad26, PF, 0.5 mL 04/17/2021 completed RAFIQ toscano [facility] 06/23/2024 17:37:24 Tdap 11/14/2009 completed RAFIQ toscano [facility] 06/23/2024 17:37:24 Tdap 12/09/2015 completed RAFIQ toscano [facility] 06/23/2024 17:37:24 DTP 1996 completed RAFIQ toscano [facility] 06/23/2024 17:37:24 DTP 12/30/1997 completed RAFIQ toscano [facility] 06/23/2024 17:37:24 Hep B, unspecified formulation 1996 completed RAFIQ toscano [facility] L.L.CC[facility]olina 06/23/2024 17:37:24 Hep B, unspecified formulation 1996 completed RAFIQ CESAR null, [facility] 06/23/2024 17:37:24 Hep B, unspecified formulation 03/12/1997 completed RAFIQSILVIA FAUSTY null, [facility] 06/23/2024 17:37:24 OPV, trivalent 12/30/1997 completed RAFIQ KERR null, [facility] 06/23/2024 17:37:24 polio, unspecified formulation 1996 completed RAFIQ CESAR null, [facility] 06/23/2024 17:37:25 polio, unspecified formulation 1996 completed RAFIQ CESAR null, [facility] 06/23/2024 17:37:25 DTP-Hib 1996 completed RAFIQ CESAR null, [facility] 06/23/2024 17:37:25 DTP-Hib 1996 completed RAFIQ CESAR null, [facility] 06/23/2024 17:37:25 Hib (PRP-T) 1996 completed RAFIQ CESAR null, [facility] 06/23/2024 17:37:25 Hib (PRP-T) 12/30/1997 completed RAFIQ CESAR null, [facility] 06/23/2024 17:37:25 DTaP 11/01/2000 completed RAFIQ CESAR null, [facility] 06/23/2024 17:37:25 Influenza, split virus, quadrivalent, PF 01/18/2016 completed RAFIQ CESAR null, [facility] 06/23/2024 17:37:25 Past Encounters Encounter ID Performer Location Encounter Start Date Encounter Closed Date Diagnosis/Indication Diagnosis SNOMED-CT Code Diagnosis ICD10 Code Diagnosis IMO Codes Diagnosis Note [id number] Nancy Guzman MD [facility] ([facility]) [address] [place] [phone] 06/09/2024 17:10:53 06/09/2024 17:47:21 Depressive disorder 03693855 F32.A Discussed potential medication s that we can use to treat her depression . The patient states that her father is on Wellbutrin and has had good success with that medication . She would like to go ahead and proceed with bupropion at this time. Follow-up in 1 month. Anxiety 29666934 F41.9 Allergy to food 11105028 1 T78.1XXA The patient has had tick exposures in the past and alpha gal could be contributi ng to the patient's symptoms. We will obtain labs today. Irregular bowel habits 232910748 R19.4 Check labs. Family his tory of cancer of colon 598169925 Z80.0 Patient has significan t family of history of early colon cancer and recommende d the patient undergo colonoscop y. The patient intends to do a colonoscop y consult with Dr. Arguello. Hyperlipid emia screening 257445892 Z13.220 Gastritis 2063458 K29.70 Patient is having some upper abdominal pain with nausea and this could be related to gastritis. Recommend doing a trial of omeprazole and see if her symptoms improve. [id number] Mikey Arguello MD [facility] ([facility]) [address] [place] [phone] 06/23/2024 16:41:13 06/25/2024 07:36:44 Family history of cancer of colon 981009088 Z80.0 Altered oswaldo wel function 73676838 R19.4 [id number] Nancy Guzman MD [facility] ([facility]) [address] [place] [phone] 07/20/2024 16:44:32 07/20/2024 17:18:05 Depressive disorder 61376646 F32.A Discussed options for medication s and we will start Zoloft and see how she does with this. Follow-up in 1 month. Chronic te nsion-type headache 776643113 G44.229 Patient's descriptio n of her headaches is consistent with a tension type headache. Discussed interventi ons to help with this including stress which reduction, neck stretching , and moist heat. Will provide Fioricet as needed to help with severe headaches. Gynecologi c examination 41994319 Z01.419 No obvious concerns on exam today. Pap smear was obtained. [id number] Mikey Arguello MD [facility] ([facility]) [address] [place] [phone] 08/18/2024 15:56:15 08/20/2024 10:44:29 Screening for malignant neoplasm of colon 682550678 Z12.11 [id number] Dysuria 37281261 R30.0 [id number] Nancy Guzman MD [facility] ([facility]) [address] [place] [phone] 09/02/2024 16:43:52 09/07/2024 07:43:54 Depressive disorder 67791200 F32.A Will increase the sertraline dose to 100 mg. Chronic te nsion-type headache 524918898 G44.229 Is doing fairly well on current interventi ons Gastritis 4354991 K29.70 Patient has had improvemen t of symptoms on omeprazole and states that she needs a refill. [id number] Mikey Arguello MD [facility] ([facility]) [address] [place] [phone] 09/02/2024 17:19:15 09/03/2024 10:17:09 Dysuria [id number] R30.0 [id number] Nancy Guzman MD [facility] ([facility]) [address] [place] [address] [phone] 12/02/2024 16:33:23 12/02/2024 17:01:04 Depressive disorder [id number] F32.A Will increase the sertraline dose to 100 mg. Gastroesop hageal reflux disease without esophagitis [id number] K21.9 [id number] Symptoms are managed well with omeprazole . [id number] Nancy Guzman MD [facility] ([facility]) [address] [place] [phone] 12/31/2024 16:47:25 01/01/2025 08:04:54 Anxiety [id number] F41.9 - Add buspirone for anxiety relief. - Evaluate response in one month. Depressive disorder [id number] F32.A - Reduce sertraline dose to 100 [...] Member ID Renee Member ID Guarantor Name 01/31/2025 1 [employer] [id number] Génesis Deanne [id number] Génesis [place] Notes Date Note Type Note Provider Name and Address Organization Details Recorded Time 025 text/ht ml Lower Urinary Tract Symptoms (LUTS)Reported by PatientHPIFor quality, patient reportsdull,aching, andcontinuous. For severity, patient reportsworsening. For onset/timing, patient reports1-3 times a day. For context, patient reportshistory of urinary tract infection. Colonoscopy ScreeningReported by PatientColonoscopy ScreeningFor gi symptoms, patient reportsdiarrheaandconstipationbut reportsno abdominal painandno rectal bleeding. For associated symptoms, patient reportsvomiting (this am)but reportsnormal appetite,no fever, andno nausea. For family history, patient reportscolon cancer. For context, patient reportsno prior examination. Follow up after colonoscopy procedure on 07/10/24 Pt states she started having burning/hurting during urination yesterday, frequency, low back pain, pt states after she is able to urinate she feels achy. Pt did start taking Azo this morning. Mikey Arguello MD [address] [place] [address], [phone], [facility] 10/04/2024 01:14:43 025 text/ht ml Anxiety/DepressionReported by PatientHPIFor associated symptoms, patient reportsanxiety,depression,sleep disturbances,social withdrawal,palpitations,anxiety with excessive sweating,trembling or shaking (tremor),headaches, anddecreased energy. For severity, patient reportssymptoms improved. For modifying factors, patient reportssocial support. Pt would like to discuss increasing mg of sertraline, she has noticed only minimal improvement in depression/anxiety since starting the medication. Patient states that her headaches are doing fairly well and she is not requiring as needed medication very often. Nancy Guzman MD [address] [place] [address], [phone], [facility] 09/03/2024 18:50:33 025 text/ht ml Pt is here today to follow up on the Omeprazole and sertraline. The omeprazole is controlling her gerd well. The sertraline she states is not controlling her low moments as well as she would like but they are not as frequent. She has been tolerating the med without any issues. Nancy Guzman MD [address] [place] [address], [phone], [facility] 12/07/2024 10:44:09 025 text/ht ml Anxiety/DepressionReported by PatientHPIFor context, patient reportsmajor life stressors. [...] and lightheadedness when standing. Nancy Guzman MD [address] [place], [phone], [facility], Ines 01/03/2025 09:24:59 OBGyn Episode No OBEpisode recorded.
[2025-03-11] MEDS: iohexol 350 mg/mL 500 mL Btl (per mL) IV (20:32)
[2025-03-11] MEDS: haloperidol inj 5 mg/mL INJ 1 mL IVP (20:50)
[2025-03-11 21:30] LABS: Glucose Urine UA Negative (Normal); Nitrate Urine Negative (Negative)
[2025-03-11 21:35] LABS: Add Urine Microscopic? YES
[2025-03-11 21:37] LABS: PCP Screen Urine Negative (Negative)
[2025-03-11] MEDS: morphine 4 mg/mL SDV 1 mL IVP (21:52)
[2025-03-11 22:06] LABS: Specific Gravity, Urine >= 1.099 (1.005-1.030)
== END 2025-03-11 23:11 | disposition home or self-care (01) ==
PROVIDERS: Physician Assistant; Emergency Provider Student in an Organized Health Care Education/Training Program; PCP Family Medicine
DX: K52.9 Noninfective gastroenteritis and colitis, unspecified (principal); R11.16 Cannabis hyperemesis syndrome
CPT/HCPCS: 36415; 74177; 80053; 80306; 81001; 83690; 83735; 84703; 85025; 96361; 96374; 96375; 99285; J1630; J1885; J2270; J2405; J3490; J7120

== ENCOUNTER 2025-03-26 17:47 | Emergency (ER) | payer BC, SELFPAY ==
--- OUTSIDE RECORDS SUMMARY | 2025-03-26 17:53 | XMS_ITS | Encounter Summary ---
Author Organization [facility] Address [address] [place] [address] Care Team Providers Care Virtual Recruiter Name Role Phone Unavailable Primary Care Provider Unavailabl e Encounter Details Date Type Department Care Team (Late st Contact Info) Description 03/23/2025 External Device Data [facility] ABSTRACTION Provider, Abstract NO ADDRESS ON FILE Social History Tobacco Use Types Packs/Day Years Used Date Smoking Tobacco: Former Cigarettes Alcohol Use Standard Drinks/Week Comments Yes 0 (1 standard drink = 0.6 oz pur e alcohol) Comments Unknown Sex and Gender Information Value Date Recorded Sex Assigned at Female 03/18/2025 7:20 AM VOICE SYSTEMS ENGINEER Legal Sex Female 3:48 PM CDT Gender Identity Female 03/18/2025 7:20 AM VOICE SYSTEMS ENGINEER Sexual Orientation Not on file documented as of this encounter Plan of Treatment Upcoming Encounters Date Type Department Care Team (Late st Contact Info) Description 05/04/2025 1:00 PM VOICE SYSTEMS ENGINEER History & Physical [place] [id number] [phone] Naty Paul MD [facility] [address] [phone] 06/14/2025 10:45 AM CDT Office Visit [place] [address] [phone] Balwnider Kinney PA [facility] [address] [phone] documented as of this encounter Visit Diagnoses Not on filedocumented in this encounter
--- OUTSIDE RECORDS SUMMARY | 2025-03-26 17:53 | XMS_ITS | Data Portability ---
Author Organization [facility], [facility], [facility] Address [address] [place] [address] CONNER ANDERSEN [id number] Care Team Providers Care Peoplesoft Programmer Name Role Phone NANCY GUZMAN Primary Care [...] Modified Time Details Appointments OFFICE VISIT 15 2025 04:00P Esthela Guzman MD Not available Not available Not available Lab urinalysi s, complete 2024 025 [facility], [address], [address], [place], [address], 09/02/2024 17:48:33 culture, urine 2024 025 [facility], [address] [facility] [address], [address], [place], [address], 08/21/2024 00:00:18 urinalysi s, complete 2024 [facility], [address], [address], [place], [address], 08/18/2024 17:55:27 Referral None recorded. Procedures None recorded. Surgeries None recorded. Imaging None recorded. Medication Orders buspirone 10 mg tablet 2024 [id number], [address], [address], [place], [address], 12/31/2024 17:21:42 sertralin e 100 mg tablet 2024 [id number], [address], [place], [address], 12/31/2024 17:21:43 sertralin e 100 mg tablet 2024 [id number], [address], [place], [address], 12/02/2024 16:52:13 omeprazol e 20 mg capsule,d elayed release [address] [facility], [address], [place], [address], 09/02/2024 20:44:58 sertralin e 100 mg tablet [address] [facility], [address], [place], [address], 09/02/2024 17:07:36 Macrobid 100 mg capsule 2024 [facility], [address], [place], [address], 09/02/2024 16:50:02 Patient TargetsNo targets recorded. Patient Instructions Encounter Date Encounter Id Patient Instructions Last Modified By Organization Details Last Modified Time 12/31/2024 [id number] - Take sertralin e 100 mg daily. [...] Abnormal Flag Note LastModifiedBy Organization Detail LastModifiedTime 07/22/1907/29/2024 THINP REP TIS PAP REFLE X HPV MRNA E6/E7 , CHLAM YDIA/ N.MARLEN ORRHO EAE clinical information: normal Janna l exam Not Available [address], [address], 07/29/2024 20:23:39 07/22/1907/29/2024 THINP REP TIS PAP REFLE X HPV MRNA E6/E7 , CHLAM YDIA/ N.MARLEN ORRHO EAE LMP: normal NONE GIVEN Not Available [address], [address], 07/29/2024 20:23:39 07/22/19 25 07/29/2024 THINP REP TIS PAP REFLE X HPV MRNA E6/E7 , CHLAM YDIA/ N.MARLEN ORRHO EAE prev. Pap: normal NONE GIVEN Not Available [address] [address] [place], [address], 07/29/2024 20:23:39 07/22/19 25 07/29/2024 THINP REP TIS PAP REFLE X HPV MRNA E6/E7 , CHLAM YDIA/ N.MARLEN ORRHO EAE prev. BX: normal NONE GIVEN Not Available [address] [place], [address], 07/29/2024 20:23:39 07/22/19 25 07/29/2024 THINP REP TIS PAP REFLE X HPV MRNA E6/E7 , CHLAM YDIA/ N.MARLEN ORRHO EAE source: normal Cervi x, Endoc ervix Not Available [address] [place], [address], 07/29/2024 20:23:39 07/22/19 25 07/29/2024 THINP REP TIS PAP REFLE X HPV MRNA E6/E7 , CHLAM YDIA/ N.MARLEN ORRHO EAE statement of adequacy: normal Satis facto ry for evalu ation . Endoc ervic al/tr ansfo rmati on zone compo nent prese nt. Age and/o r menst rual statu s not provi ded Not Available [address] [address] [place], [address], 07/29/2024 20:23:39 07/22/19 25 07/29/2024 THINP REP TIS PAP REFLE X HPV MRNA E6/E7 , CHLAM YDIA/ N.MARLEN ORRHO EAE general categorizati on: abnormal Cytol ogy Resul ts: Epith elial Cell Abnor malit y Not Available [address] [place], [address], 07/29/2024 20:23:39 07/22/19 25 07/29/2024 THINP REP TIS PAP REFLE X HPV MRNA E6/E7 , CHLAM YDIA/ N.MARLEN ORRHO EAE interpretati on/result: abnormal Atypi desirae Squam ous Cells of Undet ermin ed Signi fican ce (ASC- [place]) Not Available [address] [address] [place], [address], 07/29/2024 20:23:39 07/22/19 25 07/29/2024 THINP REP TIS PAP REFLE X HPV MRNA E6/E7 , CHLAM YDIA/ N.MARLEN ORRHO EAE comment: normal This Pap test has been evalu ated with compu ter cindy magdalena techn ology . Sugge st clini desirae corre latio n and follo w-up as clini joyce appro priat e Not Available [address] [address] [place], [address], 07/29/2024 20:23:39 07/22/19 25 07/29/2024 THINP REP TIS PAP REFLE X HPV MRNA E6/E7 , CHLAM YDIA/ N.MARLEN ORRHO EAE cytotechnolo gist: normal PCM, CT( CP) CT Scree celestino Locat ion: [address] [address] [place] [address] Not Available [address] [address] [place], [address], 07/29/2024 20:23:39 07/22/19 25 07/29/2024 THINP REP TIS PAP REFLE X HPV MRNA E6/E7 , CHLAM YDIA/ N.MARLEN ORRHO EAE pathologist: normal Janna valiente M.D., Board Certi fied in Anato ruiz Patho logy and Cytop athol ogy. Phone : [phone] (elec troni c signa ture) Not Available [address] [address] [place], [address], 07/29/2024 20:23:39 07/22/19 25 07/29/2024 THINP REP [...] clini desirae infor fer n. Not Available [address] [address] [place], [address], 07/29/2024 20:23:39 07/22/19 25 07/29/2024 THINP REP TIS PAP REFLE X HPV MRNA E6/E7 , CHLAM YDIA/ N.MARLEN ORRHO EAE chlamydia trachomatis RNA, tma, urogenital NOT DETECT ED not detect ed normal Not Available [address] [address] [place], [address], 07/29/2024 20:23:39 07/22/19 25 07/29/2024 THINP REP TIS PAP REFLE X HPV MRNA E6/E7 , CHLAM YDIA/ N.MARLEN ORRHO EAE neisseria gonorrhoeae RNA, tma, urogenital NOT DETECT ED not detect ed normal Not Available [facility] [address] [address] [place], [address], 07/29/2024 20:23:39 07/22/19 25 07/29/2024 THINP REP [...] ses. For addit ional infor shadi ruelas refer to https ://ed ucati on.qu gracie chavez [employer]. com/f aq/FA Q154 (This link is being provi ded for infor fer sanz/ jamaal valiente purpo ses only. ) Not Available [facility] [address] [place] [address], [address], 07/29/2024 20:23:39 07/22/19 25 07/29/2024 HPV MRNA [...] testi ng optio ns. For addit ional shadi molina refer to http: //ciara amaya stdia gnost ics.c om/fa q/FAQ 129v1 (This link if provi ded for infor fer sanz/ educa wesly l purpo ses only. ) Not Available [facility] [address], [address], 07/29/2024 20:23:40 08/19/19 25 08/18/2024 URINA LYSIS WITH MICRO color RED Not Available [facility] [address] [facility] [address], [place], [address], 08/18/2024 17:55:27 08/19/19 25 08/18/2024 URINA LYSIS WITH MICRO clarity CLOUDY Not Available [facility] [address] [facility] [address], [place], [address], 08/18/2024 17:55:27 08/19/19 25 08/18/2024 URINA LYSIS WITH MICRO glu 2+ Not Available [facility] [address], [place], [address], 08/18/2024 17:55:27 08/19/19 25 08/18/2024 URINA LYSIS WITH MICRO bili 2+ Not Available [facility] [address], [place], [address], 08/18/2024 17:55:27 08/19/19 25 08/18/2024 URINA LYSIS WITH MICRO ket 1+ Not Available [facility] [address], [place], [address], 08/18/2024 17:55:27 08/19/19 25 08/18/2024 URINA LYSIS WITH MICRO S.g 1.020 1.005- 1.025 Not Available [facility] [address], [place], [address], 08/18/2024 17:55:27 08/19/19 25 08/18/2024 URINA LYSIS WITH MICRO pH 5.0 5.0-7. 0 Not Available [facility] [address], [place], [address], 08/18/2024 17:55:27 08/19/19 25 08/18/2024 URINA LYSIS WITH MICRO pro 3+ Not Available [facility] [address], [place], [address], 08/18/2024 17:55:27 08/19/19 25 08/18/2024 URINA LYSIS WITH MICRO uro >=8.0 E.U./D L Not Available [facility] [address], [place], [address], 08/18/2024 17:55:27 08/19/19 25 08/18/2024 URINA LYSIS WITH MICRO nit POSITI VE Not Available [facility] [address], [place], [address], 08/18/2024 17:55:27 08/19/19 25 08/18/2024 URINA LYSIS WITH MICRO blo 3+ Not Available [facility] [address], [place], [address], 08/18/2024 17:55:27 08/19/19 25 08/18/2024 URINA LYSIS WITH MICRO red 3+ Not Available [facility] [address], [place], [address], 08/18/2024 17:55:27 08/19/19 25 08/18/2024 URINA LYSIS WITH MICRO WBC 100> Not Available [facility] [address], [place], [address], 08/18/2024 17:55:27 08/19/19 25 08/18/2024 URINA LYSIS WITH MICRO RBC 100> Not Available [facility] [address], [place], [address], 08/18/2024 17:55:27 08/19/19 25 08/18/2024 URINA LYSIS WITH MICRO epi cells 20-25 Not Available [facility] [address], [place], [address], 08/18/2024 17:55:27 08/19/19 25 08/18/2024 URINA LYSIS WITH MICRO bacteria 1+ MIXED HA Not Available [facility] [address], [place], [address], 08/18/2024 17:55:27 08/19/19 25 08/18/2024 URINA LYSIS WITH MICRO other NEGATI VE Not Available [facility] [address] [facility] [address], [place], [address], 08/18/2024 17:55:27 08/19/19 25 08/20/2024 CULTU RE, URINE , ROUTI NE culture, urine, routine SEE NOTE CULTU RE, URINE , ROUTI NE Micro Numbe r: [id number] Test Statu s: Final Speci men [...] Tube, is recom seun d. Not Available [facility] [address] [place], [address], 08/21/2024 00:00:17 09/03/19 25 09/02/2024 URINA LYSIS WITH MICRO color YELLOW Not Available [facility] [address] [facility] [address], [place], [address], 09/02/2024 17:48:33 09/03/19 25 09/02/2024 URINA LYSIS WITH MICRO clarity CLEAR Not Available [facility] [address] [facility] [address], [place], [address], 09/02/2024 17:48:33 09/03/19 25 09/02/2024 URINA LYSIS WITH MICRO glu NEGATI VE Not Available [facility] [address] [facility] [address], [place], [address], 09/02/2024 17:48:33 09/03/19 25 09/02/2024 URINA LYSIS WITH MICRO bili NEGATI VE Not Available [facility] [address] [facility], [place], [address], 09/02/2024 17:48:33 09/03/19 25 09/02/2024 URINA LYSIS WITH MICRO ket NEGATI VE Not Available [facility] [address] [facility] [address], [place], [address], 09/02/2024 17:48:33 09/03/19 25 09/02/2024 URINA LYSIS WITH MICRO S.g 1.025 1.005- 1.025 Not Available [facility] [address] [facility], [place], [address], 09/02/2024 17:48:33 09/03/19 25 09/02/2024 URINA LYSIS WITH MICRO pH 6.5 5.0-7. 0 Not Available [facility] [address] [facility] [address], [place], [address], 09/02/2024 17:48:33 09/03/19 25 09/02/2024 URINA LYSIS WITH MICRO pro NEGATI VE Not Available [facility] [address] [facility] [address], [place], [address], 09/02/2024 17:48:33 09/03/19 25 09/02/2024 URINA LYSIS WITH MICRO uro 0.2 E.U./D L Not Available [facility] [address] [facility], [place], [address], 09/02/2024 17:48:33 09/03/19 25 09/02/2024 URINA LYSIS WITH MICRO nit NEGATI VE Not Available [facility] [address] [facility] [address], [place], [address], 09/02/2024 17:48:33 09/03/19 25 09/02/2024 URINA LYSIS WITH MICRO blo NEGATI VE Not Available [facility] [address], [place], [address], 09/02/2024 17:48:33 09/03/1909/02/2024 URINA LYSIS WITH MICRO red TRACE Not Available [facility] [address], [place], [address], 09/02/2024 17:48:33 09/03/1909/02/2024 URINA LYSIS WITH MICRO WBC 10-12 Not Available [facility] [address], [place], [address], 09/02/2024 17:48:33 09/03/1909/02/2024 URINA LYSIS WITH MICRO RBC 2-3 Not Available [facility] [address] [facility] [address], [place], [address], 09/02/2024 17:48:33 09/03/1909/02/2024 URINA LYSIS WITH MICRO epi cells 25-30 Not Available [facility] [address] [facility], [place], [address], 09/02/2024 17:48:33 09/03/19 25 09/02/2024 URINA LYSIS WITH MICRO bacteria TRACE OF MIXED HA Not Available [facility] [address] [facility], [place], [address], 09/02/2024 17:48:33 09/03/1909/02/2024 URINA LYSIS WITH MICRO other NEGATI VE Not Available [facility] [address] [facility] [address], [place], [address], 09/02/2024 17:48:33 Result Notes None recorded. Problems Name Problem SNOMED Code Status Onset Date Resolution Date Notes Provider Name and Address Organization Details Recorded Time Anxiety 06557490 Active 2024 Nancy Guzman MD [address] [place] [address], [phone], [facility] 5 17:14:09 Depressive disorder 09256020 Active 2024 Nancy Guzman MD [address] [place] [address], [phone], [facility] 5 17:14:11 Abdominal pain 96357864 Active 2024 Cristy toscano [facility] 5 17:29:40 Irregular bowel habits 932927509 Active 2024 Cristy toscano [facility] 5 12:18:11 Allergy to food 257911461 Active 2024 Cristy [facility]scano [facility] 5 12:18:21 Gastritis 1043277 Active 2024 Cristy toscano [facility] 5 12:18:04 Chronic tension-type headache 325871789 Active 2024 YAMILKA Luther [facility] 5 16:37:37 Gastroesophage al reflux disease without esophagitis 545813031 Active 2024 Nancy Guzman MD [address] [place] [address], [phone], [facility] 5 10:43:52 Problem Notes None recorded. Procedures Surgical History Date Name Laterality Status Provider Name and Address Organization Details Recorded Time 5 Date of Last Pap Smear completed LOBO GUADARRAMA [facility] 07/20/2024 16:54:37 colonoscopy completed RAFIQ CESAR [facility] 07/14/2024 13:21:22 ligation of fallopian tube completed [facility]08[facility]2024 11:38:02 Imaging Results None recorded. Procedure Notes None recorded. Medical Equipment None Reported. Allergies No known drug allergies Medications Name Sig Start Date Stop Date Status Note LastModified by Organization Details LastModified Time sertralin e 100 mg tablet Take 1 tablet every day by oral route. 2024 active Not Available Not Available Not Avai jean butalbita l-acetami nophen-ca ffeine 50 mg-325 mg-40 [...] TAKE 1 CAPSULE BY MOUTH EVERY DAY 2024 active Not Available Not Available Not Avai lable sertralin e 50 mg tablet TAKE 1 [...] Updated DateTime 5 156.21 cm 23.5 kg/m2 74054.4 4 g 18 /min 98.9 [degF] 120/72 mm[Hg] Y[facility]ILKA [facility]ER [facility] 5 16:46:00 Date Recorded Body height Body mass index (BMI) Body weight Body temperature Oxygen saturation Heart rate Systolic And Diastolic Provider Name and Address Organization Details Last Updated DateTime 5 156.21 cm 23.4 kg/m2 17278.6 4 g 97.8 [degF] 99 % 88 /min 116/68 mm[Hg] Counts include 234 beds at the [facility] 16:48:05 Date Recorded Body height Body mass index (BMI) Body weight Body temperature Oxygen saturation Heart rate Systolic And Diastolic Provider Name and Address Organization Details Last Updated DateTime 5 156.21 cm 23.8 kg/m2 38957.8 2 g 97.8 [degF] 98 % 73 /min 100/64 mm[Hg] Counts include 234 beds at the [facility] 16:37:29 Date Recorded Body height Oxygen saturation Heart rate Respiratory rate Body temperature Systolic And Diastolic Provider Name and Address Organization Details Last Updated DateTime 5 156.21 cm 98 % 77 /min 16 /min 97.7 [degF] 100/64 mm[Hg] Cristy Douglass [facility] 16:53:25 Social History Question Answer Notes LastModified by Organizat ion Details LastModified Time Tobacco Smoking Status Former Smoker Cristy Douglass [facility] 06/09/2024 17:20:53 What Is Your Level Of Caffeine Consumption? Heavy [email or web address] Information not available 12/31/2024 Which Illicit Or Recreational Drugs Have You Used? Medical Marijuana [email or web address] Information not available 06/09/2024 When Did You Quit Smoking? 1-5yearssincel astcigarette 2021 [email or web address] Information not available 12/31/2024 What Type Of Marijuana Have You Used? Edibles [email or web address] Information not available 12/31/2024 Do You Or Have You Ever Used Marijuana? Current Some Days User [email or web address] Information not available 12/31/2024 What Was The Date Of Your Most Recent Tobacco Screening? 12/02/2024 [email or web address] Information not available 12/02/2024 What Is Your Current Pack Years? 10packyears [email or web address] Information not available 06/09/2024 Was Your Marijuana Use Recreational Or Medical? Medical [email or web address] Information not available 12/31/2024 At What Age Did You Start Smoking Tobacco? 17 [email or web address] Information not available 12/31/2024 Have You Used IV Drugs? No [email or web address] Information not available 12/31/2024 Sex: Unknown Functional Status Question Answer Note LastModified by Organizat ion Details LastModified Time How many times per week do you consume alcohol? Less than 1 time per week Information not available 09/02/2024 Do you use any illicit or recreational drugs? Yes [email or web address] Information not available 06/09/2024 What is your level of alcohol consumption? Occasional [email or web address] Information not available 06/09/2024 Mental Status None recorded. Family History Relationship Description Onset Age of this Age Resolved Age Notes LastModified by Organization Details LastModified Time Father No current problems or disability Not available 07/2024 17:31:05 Mother No current problems or disability Not available 07/2024 17:31:05 Mother Disorder of thyroid gland 7 OF HER MOTHER S FAMILY MEMBER S [email or web address] Not available 06/09/2024 17:32:00 Unspecified Relation Malignant [...] Recorded Time IPV 11/01/2000 completed RAFIQ toscano [facility] 06/23/2024 17:37:24 MMR 11/01/2000 completed RAFIQ toscano [facility] 06/23/2024 17:37:24 MMR 03/12/1997 completed RAFIQ toscano [facility] 06/23/2024 17:37:24 COVID-19 vaccine, vector-nr, rS-Ad26, PF, 0.5 mL 04/17/2021 completed RAFIQ toscano [facility] 06/23/2024 17:37:24 Tdap 11/14/2009 completed RAFIQ toscano [facility] 06/23/2024 17:37:24 Tdap 12/09/2015 completed RAFIQ toscano [facility] 06/23/2024 17:37:24 DTP 1996 completed RAFIQ toscano [facility] 06/23/2024 17:37:24 DTP 12/30/1997 completed RAFIQ toscano [facility] 06/23/2024 17:37:24 Hep B, unspecified formulation 1996 completed RAFIQSILVIA FAUSTY null, [facility] 06/23/2024 17:37:24 Hep B, unspecified formulation 1996 completed RAFIQSILVIA FAUSTY null, [facility] 06/23/2024 17:37:24 Hep B, unspecified formulation 03/12/1997 completed RAFIQSILVIA FAUSTY null, [facility] 06/23/2024 17:37:24 OPV, trivalent 12/30/1997 completed RAFIQ KERR null, [facility] 06/23/2024 17:37:24 polio, unspecified formulation 1996 completed RAFIQ CESAR null, [facility] 06/23/2024 17:37:25 polio, unspecified formulation 1996 completed RAFIQ CESAR null, [facility] 06/23/2024 17:37:25 DTP-Hib 1996 completed RAFIQ CESAR null, [facility] 06/23/2024 17:37:25 DTP-Hib 1996 completed RAFIQ CESAR null, [facility] 06/23/2024 17:37:25 Hib (PRP-T) 1996 completed RAFIQ CESAR null, [facility] 06/23/2024 17:37:25 Hib (PRP-T) 12/30/1997 completed RAFIQ CESAR null, [facility] 06/23/2024 17:37:25 DTaP 11/01/2000 completed RAFIQ CESAR null, [facility] 06/23/2024 17:37:25 Influenza, split virus, quadrivalent, PF 01/18/2016 completed RAFIQ toscano [facility] 17:37:25 Past Encounters Encounter ID Performer Location Encounter Start Date Encounter Closed Date Diagnosis/Indication Diagnosis SNOMED-CT Code Diagnosis ICD10 Code Diagnosis IMO Codes Diagnosis Note [id number] Nancy Guzman MD [facility] ([facility]) [address] [place] [phone] 06/09/2024 17:10:53 06/09/2024 17:47:21 Depressive disorder 22531186 F32.A Discussed potential medication s that we can use to treat her depression . The patient states that her father is on Wellbutrin and has had good success with that medication . She would like to go ahead and proceed with bupropion at this time. Follow-up in 1 month. Anxiety 07648190 F41.9 Allergy to food 40986847 1 T78.1XXA The patient has had tick exposures in the past and alpha gal could be contributi ng to the patient's symptoms. We will obtain labs today. Irregular bowel habits 626471036 R19.4 Check labs. Family his tory of cancer of colon 095382178 Z80.0 Patient has significan t family of history of early colon cancer and recommende d the patient undergo colonoscop y. The patient intends to do a colonoscop y consult with Dr. Arguello. Hyperlipid emia screening 594759690 Z13.220 Gastritis 9325383 K29.70 Patient is having some upper abdominal pain with nausea and this could be related to gastritis. Recommend doing a trial of omeprazole and see if her symptoms improve. [id number] Mikey Arguello MD [facility] ([facility]) [address] [place] [phone] 5 06/23/2024 16:41:13 06/25/2024 07:36:44 Family history of cancer of colon 439233039 Z80.0 Altered oswaldo wel function 02303517 R19.4 [id number] Nancy Guzman MD [facility] ([facility]) [address] [place] [phone] 5 07/20/2024 16:44:32 07/20/2024 17:18:05 Depressive disorder 91908439 F32.A Discussed options for medication s and we will start Zoloft and see how she does with this. Follow-up in 1 month. Chronic te nsion-type headache 699176892 G44.229 Patient's descriptio n of her headaches is consistent with a tension type headache. Discussed interventi ons to help with this including stress which reduction, neck stretching , and moist heat. Will provide Fioricet as needed to help with severe headaches. Gynecologi c examination 12712630 Z01.419 No obvious concerns on exam today. Pap smear was obtained. [id number] Mikey Arguello MD [facility] ([facility]) [address] [place] [phone] 5 08/18/2024 15:56:15 08/20/2024 10:44:29 Screening for malignant neoplasm of colon 412884609 Z12.11 [id number] Dysuria 15134850 R30.0 [id number] Nancy Guzman MD [facility] ([facility]) [address] [place] [phone] 5 09/02/2024 16:43:52 09/07/2024 07:43:54 Depressive disorder 23782811 F32.A Will increase the sertraline dose to 100 mg. Chronic te nsion-type headache 561779564 G44.229 Is doing fairly well on current interventi ons Gastritis 1305560 K29.70 Patient has had improvemen t of symptoms on omeprazole and states that she needs a refill. [id number] Mikey Arguello MD [facility] ([facility]) [address] [place] [phone] 5 09/02/2024 17:19:15 09/03/2024 10:17:09 Dysuria 13433884 R30.0 [id number] Nancy Guzman MD [facility] ([facility]) [address] [place] [phone] 5 12/02/2024 16:33:23 12/02/2024 17:01:04 Depressive disorder 69881503 F32.A Will increase the sertraline dose to 100 mg. Gastroesop hageal reflux disease without esophagitis 021279096 K21.9 [id number] Symptoms are managed well with omeprazole . [id number] Nancy Guzman MD [facility] ([facility]) [address] [place] [address] 12/31/2024 16:47:25 01/01/2025 08:04:54 Anxiety 15511041 F41.9 - Add buspirone for anxiety relief. - Evaluate response in one month. Depressive disorder 1452 9001 F32.A - Reduce sertraline dose to 100 [...] ID Guarantor Name 01/31/2025 1 [place] [id number] [facility] [id number] 88 [facility] Notes Date Note Type Note Provider Name [...] taking Azo this morning. Mikey Arguello MD [address] [place] [address], [phone], [facility] 10/04/2024 01:14:43 025 text/ht ml Anxiety/DepressionReported by [...] needed medication very often. Nancy Guzman MD [address] [place] [address], [phone], [facility] 09/03/2024 18:50:33 025 text/ht ml Pt is here today to follow up on the Omeprazole and sertraline. The omeprazole is controlling her gerd well. The sertraline she states is not controlling her low moments as well as she would like but they are not as frequent. She has been tolerating the med without any issues. Nancy Guzman MD [address] [place] [address], [phone], [facility] 12/07/2024 10:44:09 025 text/ht ml Anxiety/DepressionReported [...] and lightheadedness when standing. Nancy Guzman MD [address] [place] [address], [phone], [facility], [place] 01/03/2025 09:24:59 OBGyn Episode No OBEpisode recorded.
--- OUTSIDE RECORDS SUMMARY | 2025-03-26 17:53 | XMS_ITS | Clinical Summary ---
Author Organization [facility] Address [address] [place] [address] Care Team Providers Care Neurology Tech Name Role Phone Unavailable Primary Care Provider Unavailabl e Allergies No known active allergies Medications sertraline (ZOLOFT) 100 mg tablet Take 1.5 Tablets by mouth daily. 5 Active busPIRone (BUSPAR) 10 mg tablet Take 1 Tablet by mouth 2 times daily. 5 Active omeprazole (PriLOSEC) 20 mg Capsule, Delayed Release(E.C.) Take 20 mg by mouth daily. Active norethindrn a-e estradiol-iron (LOESTRIN FE) 1 mg-20 mcg (21)/75 mg (7) tabletIndications: OCP (oral contraceptive pills) initiation Take 1 Tablet by mouth daily. 28 Tablet 12 5 Active Active Problems Problem Noted Date Diagnosed Date Left ovarian cyst 03/18/2025 Chronic pelvic pain in female 03/18/2025 Resolved Problems Problem Noted Date Diagnosed Date Resolved Date Chlamydia, treated 02/12/22 02/12/2022 1 05/17/2024 Encounters Date Type Department Care Team Description 03/23/2025 External Device Data STL ABSTRACTION Provider, Abstract 03/23/2025 External Device Data STL ABSTRACTION Provider, Abstract 03/23/2025 External Device Data STL ABSTRACTION Provider, Abstract 03/18/2025 2:05 PM MOTORMAN/WOMAN Office Visit [facility] [place] [address] Naty Paul MD Chronic pelvic pain in female (Primary Dx); Left ovarian cyst; OCP (oral contraceptive pills) initiation from Last 3 Months Family History Medical History Relation Name Comments [...] Sex Assigned at Female 03/18/2025 7:20 AM MOTORMAN/WOMAN Legal Sex Female 3:48 PM CDT Gender Identity Female 03/18/2025 7:20 AM MOTORMAN/WOMAN Sexual Orientation Not on file Last Filed Vital Signs Vital Sign Reading Time Taken Comments Blood Pressure 108/68 03/18/2025 2:30 PM MOTORMAN/WOMAN Pulse - - Temperature - - Respiratory Rate - - Oxygen Saturation - - Inhaled Oxygen Concentration - - Weight 56.9 kg (125 lb 6.4 oz) 03/18/2025 2:30 P M MOTORMAN/WOMAN Height 154.9 cm (5' 1 ) 02/06/2022 10:51 AM CDT Body Mass Index 23.69 02/06/2022 10:51 AM CDT Plan of Treatment Upcoming Encounters Date Type Department Care Team (Late st Contact Info) Description 05/04/2025 1:00 PM MOTORMAN/WOMAN History & Physical [address] [address] Naty Paul MD [facility] [address] [address] 06/14/2025 10:45 AM CDT Office Visit [facility] [place] [address] [address] Balwinder Kinney PA [facility] [address] [address] Health Maintenance Due Date Last Done Comments DTAP/TDAP/TD VACCINES (3 - Tdap) 2015 12/30/18 98, 1996 HPV/Cotest (21-29) 2017 Preventative Visit- Commercial 04/08/2024 02/06/2022 INFLUENZA VACCINE (#1) 2024 COVID-19 Vaccine (2 - season) 12/07/202401/2022 CERVICAL CANCER SCREENING 02/06/2025 PAP SMEAR 02/06/2025 02/06/2022 HEPATITIS B VACCINES Completed 03/12/1997, 1996, 1996 HPV VACCINES (No Doses Required) Completed Procedures Procedure Name Priority Date/Time Associated Diagnosis [...] STI screening follows ACOG guidelines(PB 168, 140, IDL593). See individual assays for performing site location. [...] ithelial lesion or malignancy. CYTOLOGY INFECTION Q corwin Bradshaw Comment: Shift in vaginal juan suggestive of bacterial vaginosis. COMMENT (PAP TEST) Q corwin Bradshaw Comment: This Pap test has been evaluated with computer assisted technology. CONE FORMER: Nohemi Bradshaw Comment: JAF, CT(ASCP) CT Screening Location: [place] [address] [place] [address] [address] Karlee Bradshaw Comment: [...] and current clinical information. Test Performed at: [place] [address] [address] [place] [phone] Bello Serna Genital SWAB OF ENDOCERVIX / Unknown 02/06/2022 12:01 PM CDT 02/07/2022 3:28 AM CDT Naty Paul MD PATHOLOGY/CYTOLOGY ORDE BARBIE Final Result [facility] [phone] [place] [address] [place] [address] from Last 3 Months or Most Recently Relevant to Health Maintenance Insurance [address] [place] [id number] [facility] BLUE ACCESS/TRUE BLUE PPO
--- OUTSIDE RECORDS SUMMARY | 2025-03-26 17:53 | XMS_ITS | Encounter Summary ---
Author Organization [facility] Address [address] [place] [address] Care Team Providers Care Metal Tester Name Role Phone Unavailable Primary Care Provider [...] Sex Assigned at Female 03/18/2025 7:20 AM CRIMINAL DEFENSE LAWYER Legal Sex Female 3:48 PM CDT Gender Identity Female 03/18/2025 7:20 AM CRIMINAL DEFENSE LAWYER Sexual Orientation Not on file documented as of this encounter Plan of Treatment Upcoming Encounters Date Type Department Care Team (Late st Contact Info) Description 05/04/2025 1:00 PM CRIMINAL DEFENSE LAWYER History & Physical [place] [address] [address] Naty Paul MD [facility] [address] [address] 06/14/2025 10:45 AM CDT Office Visit [place] [address] [address] Balwinder Kinney PA [facility] [address] [address] documented as of this encounter Visit Diagnoses Not on filedocumented in this encounter
--- OUTSIDE RECORDS SUMMARY | 2025-03-26 17:53 | XMS_ITS | Encounter Summary ---
Author Organization [facility] Address [address] [place] [address] Care Team Providers Care Bandage Winding Machine Operator Name Role Phone Unavailable Primary Care Provider [...] Sex Assigned at Female 03/18/2025 7:20 AM PLAYGROUND AIDE Legal Sex Female 3:48 PM CDT Gender Identity Female 03/18/2025 7:20 AM PLAYGROUND AIDE Sexual Orientation Not on file documented as of this encounter Plan of Treatment Upcoming Encounters Date Type Department Care Team (Late st Contact Info) Description 05/04/2025 1:00 PM PLAYGROUND AIDE History & Physical [place] [address] [address] Naty Paul MD [facility] [address] [address] 06/14/2025 10:45 AM CDT Office Visit [place] [address] [address] Balwinder Kinney PA [facility] [address] [address] documented as of this encounter Visit Diagnoses Not on filedocumented in this encounter
--- OUTSIDE RECORDS SUMMARY | 2025-03-26 17:53 | XMS_ITS | Continuity of Care Document ---
Author Organization [place] [facility], [place], [facility] ([facility]) Address [address] [address] Care Team Providers Care Rose Grower Name Role Phone NANCY GUZMAN Primary Care Provider [phone] Assessment Encounter Date Assessment Date Assessment LastModified [...] Details Appointments OFFICE VISIT 15 2025 04:00P M Nancy Guzman MD Not available Not available Not available Lab None recorded. Referral None recorded. Procedures None recorded. Surgeries None recorded. Imaging None recorded. Medication Orders buspirone 10 mg tablet 2024 025 [facility]/Pharmacy #[id number], [address], [place], [address], 12/31/2024 17:21:42 sertralin e 100 mg tablet 2024 025 [facility]/Pharmacy #[id number], [address], [place], [address], 12/31/2024 17:21:43 Patient TargetsNo targets recorded. Patient Instructions Encounter Date Encounter Id Patient Instructions Last Modified By Organization Details Last Modified Time 12/31/2024 [id number] - Take sertralin e 100 mg daily. [...] and Address Organization Details Recorded Time Anxiety 88778244 Active 2024 Nancy Guzman MD [address] [place] [address], [phone] [place] [address], L.L[facility] 17:14:09 Depressive disorder 83729024 Active 2024 Nancy Guzman MD [address] [place] [address], [phone] [place] [address], L.L.[place]ar[place] 17:14:11 Abdominal pain 83382506 Active 2024 Cristy toscano [facility], [facility] 17:29:40 Irregular bowel habits 933978703 Active 2024 [facility] 12:18:11 Allergy to food 012460448 Active 2024 Cristy toscano [facility] 5 12:18:21 Gastritis 2111202 Active 2024 Cristy toscano [facility] 5 12:18:04 Chronic tension-type headache 421003843 Active 2024 YAMILKA YOUNGER dorcas [facility] 5 16:37:37 Gastroesophage al reflux disease without esophagitis 949938569 Active 2024 Nancy Guzman MD [address] [place] [address], [phone], [facility], [facility] 5 10:43:52 Problem Notes None recorded. Procedures Surgical History Date Name Laterality Status Provider Name and Address Organization Details Recorded Time 5 Date of Last Pap Smear completed [facility] 07/20/2024 16:54:37 [facility]/14/2024 13:21:22 ligation of fallopian tube completed [facility] 06/08/2024 11:38:02 Imaging Results None recorded. Procedure Notes None recorded. Medical Equipment None Reported. Allergies No known drug allergies Medications Name Sig Start Date Stop Date Status Note LastModified by Organization Details LastModified Time sertralin e 100 mg tablet Take 1 tablet every day by oral route. 2024 active Not Available Not Available Not Avai labtasia butjerricaa l-acetami nophen-ca ffeine 50 mg-325 mg-40 mg [...] /min 97.7 [degF] 100/64 mm[Hg] Cristy Douglass [facility] 16:53:25 Social History Question Answer Notes LastModified by Organizat ion Details LastModified Time Tobacco Smoking Status Former Smoker Cristy Douglass [facility] L[facility] 06/09/2024 17:20:53 What Is Your Level Of Caffeine Consumption? Heavy [email or web address] Information not available 12/31/2024 Which Illicit Or Recreational Drugs Have You Used? Medical Marijuana [email or web address] Information not available 06/09/2024 When Did You Quit Smoking? 1-5yearssincel astcigarette 2021 [email or web address] Information not available 12/31/2024 What Type Of Marijuana Have You Used? Edibles [email or web address] Information not available 12/31/2024 Do You Or Have You Ever Used Marijuana? Current Some Days User Information not available 12/31/2024 What Was The Date Of Your Most Recent Tobacco Screening? 12/02/2024 [email or web address] Information not available 12/02/2024 What Is Your Current Pack Years? 10packyears [email or web address] Information not available 06/09/2024 Was Your Marijuana Use Recreational Or Medical? Medical [email or web address] Information not available 12/31/2024 At What Age Did You Start Smoking Tobacco? 17 [email or web address] Information not available 12/31/2024 Have You Used IV Drugs? No [email or web address] Information not available 12/31/2024 Sex: Unknown Functional Status Question Answer Note LastModified by Organizat ion Details LastModified Time How many times per week do you consume alcohol? Less than 1 time per week Information not available 09/02/2024 Do you use any illicit or recreational drugs? Yes Information not available 06/09/2024 What is your level of alcohol consumption? Occasional [email or web address] Information not available 06/09/2024 Mental Status None recorded. Family History Relationship Description Onset Age of this Age Resolved Age Notes LastModified by Organization Details LastModified Time Father No current problems or disability [email or web address] Not available 07/2024 17:31:05 Mother No current problems or disability [email or web address] Not available 07/2024 17:31:05 Mother Disorder of thyroid gland 7 OF HER MOTHER S FAMILY MEMBER S Not available 06/09/2024 17:32:00 Unspecified Relation Malignant [...] Recorded Time IPV 11/01/2000 completed RAFIQ toscano [facility], L.L.[facility] 06/23/2024 17:37:24 MMR 11/01/2000 completed RAFIQ toscano [facility], [facility] 06/23/2024 17:37:24 MMR 03/12/1997 completed RAFIQ toscano [facility] 06/23/2024 17:37:24 COVID-19 vaccine, vector-nr, rS-Ad26, PF, 0.5 mL 04/17/2021 completed RAFIQ toscano [facility] 06/23/2024 17:37:24 Tdap 11/14/2009 completed RAFIQ toscano [facility] 06/23/2024 17:37:24 Tdap 12/09/2015 completed RAFIQ toscano [facility], L.L.[facility] 06/23/2024 17:37:24 DTP 1996 completed RAFIQ toscano [facility] 06/23/2024 17:37:24 DTP 12/30/1997 completed RAFIQ toscano [facility], L.LCarolinaCCarolina 06/23/2024 17:37:24 Hep B, unspecified formulation 1996 completed RAFIQSILVIA FAUSTY null, [facility] 06/23/2024 17:37:24 Hep B, unspecified formulation 1996 completed RAFIQSILVIA FAUSTY null, [facility] 06/23/2024 17:37:24 Hep B, unspecified formulation 03/12/1997 completed RAFIQSILVIA FAUSTY null, [facility] 06/23/2024 17:37:24 OPV, trivalent 12/30/1997 completed RAFIQ KERR null, [facility] 06/23/2024 17:37:24 polio, unspecified formulation 1996 completed RAFIQSILVIA FAUSTY null, [facility] 06/23/2024 17:37:25 polio, unspecified formulation 1996 completed RAFIQ FAUSTY null, [facility] 06/23/2024 17:37:25 DTP-Hib 1996 completed RAFIQ CESAR null, [facility] 06/23/2024 17:37:25 DTP-Hib 1996 completed RAFIQ FAUSTY null, [facility] 06/23/2024 17:37:25 Hib (PRP-T) 1996 completed RAFIQ CESAR null, [facility] 06/23/2024 17:37:25 Hib (PRP-T) 12/30/1997 completed RAFIQ CESAR null, [facility] 06/23/2024 17:37:25 DTaP 11/01/2000 completed RAFIQ CESAR null, [facility] 06/23/2024 17:37:25 Influenza, split virus, quadrivalent, PF 01/18/2016 completed [place] [facility], [place] 06/23/2024 17:37:25 Past Encounters Encounter ID Performer Location Encounter Start Date Encounter Closed Date Diagnosis/Indication Diagnosis SNOMED-CT Code Diagnosis ICD10 Code Diagnosis IMO Codes Diagnosis Note [id number] Nancy Guzman MD [facility] ([facility]) [address] [place] [phone] 12/02/2024 16:33:23 12/02/2024 17:01:04 Depressive disorder 98169710 F32.A Will increase the sertraline dose to 100 mg. Gastroesop hageal reflux disease without esophagitis 916371225 K21.9 778833 Symptoms are managed well with omeprazole . [id number] Nancy Guzman MD [facility] ([facility]) [address] [place] [address] 12/31/2024 16:47:25 01/01/2025 08:04:54 Anxiety 70283107 F41.9 - Add buspirone for anxiety relief. [...] ID Guarantor Name 12/31/2024 1 [place] [id number] Génesis Alicea [id number] 88 Génesis Hidalgo Notes Date Note Type Note [...] and lightheadedness when standing. Nancy Guzman MD [address] [place] [address], [phone], [facility] 01/03/2025 09:24:59 OBGyn Episode No OBEpisode recorded.
[2025-03-26 18:01] VITALS: BP 97/54; PULSE 76; RESP 16; TEMP 36; O2SAT 100; BMI 24.0
--- NOTE | 2025-03-26 18:22 | ECG_ITS ---
[employer] Test Date: 2025-03-26 Pat Name: Génesis Hidalgo Department: Room: Gender: Female Research Anthropologist: : 1995 Requested By: Antwan Meraz Order Number: [id number] Reading MD: Measurements Intervals Shiloh Rate: 68 P: 50 ME: 116 QRS: 76 QRSD: 92 T: 61 QT: 442 QTc: 473 Interpretive Statements SINUS RHYTHM WITH SINUS ARRHYTHMIA WITH SHORT ME INTERVAL [email or web address]
[2025-03-26 18:33] LABS: Hematocrit 40.5 % (36-47); Hemoglobin 13.60 g/dL (11.27-16.99); Mean Corpuscular HGB Conc 33.6 g/dL (30-55); Mean Corpuscular Hemoglobin 30.2 pg (27-33); Mean Corpuscular Volume 89.8 fl (85-98); Nucleated Red Blood Cells % 0 %; Platelet Count 280 10^3/cmm (157-399); Red Blood Count 4.51 10^6/uL (3.85-5.65); White Blood Count 14.96 10^3/uL (3.29-11.43)
[2025-03-26] MEDS: ondansetron 2 mg/ML SDV 2 mL 4 MG IVP (18:46)
[2025-03-26 18:56] VITALS: BP 113/68; PULSE 63; RESP 18; O2SAT 100
[2025-03-26 18:56] LABS: Respiratory Syncytial Virus Ce NEGATIVE (Negative); SARS-CoV-2 PCR NEGATIVE (Negative)
[2025-03-26 18:58] LABS: HCG, Serum Qual Negative (Negative)
[2025-03-26 19:02] LABS: Glucose Urine UA Trace (Normal); Nitrate Urine Negative (Negative)
[2025-03-26 19:04] LABS: HCG Qualitative Urine. Negative (Negative)
--- NOTE | 2025-03-26 19:06 | ED_ITS ---
HPI - Nausea/Vomiting/Diarrhea 2 General: Chief complaint: Nausea/Vomiting/Diarrhea Stated complaint: N/V/D Fever can't keep anything down Time Seen by Provider: 03/26/25 18:00 History of Present Illness: Patient is a 30-year-old female who presents with persistent nausea and vomiting over the course of today, has had a few loose stools as well the patient reports recent congestion but denies flu-like symptoms such as cough, fever, fatigue, mucus production. She has a history of cannabis hyperemesis and has been decreasing on her marijuana usage recently. She took 2 ODT medications at home, does not recall the name but they did not help her. She has had generalized abdominal cramping but no localized pain, no back pain, no urinary issues. Associated nausea: Yes Associated symtoms: Reports nausea; Denies change in vision, chest pain, headache(s) or palpitations Related Data Previous Rx's ?Medication ?Instructions ?Recorded ondansetron 4 mg disintegrating 4 mg PO Q8H PRN nausea and 07/12/22 tablet vomiting #7 tabs lorazepam 2 mg tablet (Ativan) 2 mg buccal TID PRN don sea and 10/16/24 vomiting #14 tabs olanzapine 10 mg disintegrating 10 mg PO DAILY PRN don sea and 10/16/24 tablet vomitting #20 tabs capsaicin 0.1 % topical cream 1 applic topical TID PRN abdominal 03/11/25 pain #42.5 grams cephalexin 500 mg tablet 500 mg PO Q8H 10 days #30 ta bs 03/26/25 olanzapine 10 mg tablet 10 mg PO BID PRN nausea 5 da ys #10 03/26/25 tabs Allergies Allergy/AdvReac Type Severity Reaction Status Date / Time No Known Allergies Allergy Unverified 07/12/22 08:19 Review of Systems 2 General: Reports: 10 or more systems reviewed and unremarkable except in HPI and below Const: Denies: fever(s) or chills Eyes: Denies: change in vision or eye discharge Card: Denies: chest pain, palpitations or swelling of feet/ankles Resp: Denies: dyspnea or productive cough GI: Reports: abdominal pain, nausea, vomiting and diarrhea Musc: Denies: neck pain or back pain Skin/Breast: Denies: rash or jaundice Neuro: Denies: headache(s), numbness in extremities or weakness in extremities Du/Lymph: Denies: easy bruising or easy bleeding PFSH ED 2 PFSH: Medical History (Updated 03/26/25 @ 21:26 by Antwan Meraz DO) Acute viral syndrome Nausea & vomiting Female Reproductive History: Date of last menstrual period: 03/07/25 Physical Exam 2 Narrative: EXAM NARRATIVE: Appears fatigued, afebrile, nontoxic, vital stable on arrival, no acute distress. Abdomen soft, generalized mild tenderness, no localizing or peritonitic signs, bowel sounds increased, no overlying skin changes, no CVA tenderness. Appears mildly dehydrated, slightly delayed cap refill, pale, 2+ pulses throughout, normal sinus rhythm with no murmurs. Breathing comfortably on room air, saturating well, no adventitious lung sounds. GCS 15 Course 2 Vital Signs: Vital signs: Vital Signs Temperature 96.8 F L 03/26/25 18:01 Pulse Rate 61 03/26/25 21:40 Respiratory Rate 16 03/26/25 21:40 Blood Pressure 106/73 03/26/25 21:40 Pulse Oximetry 99 03/26/25 21:40 Oxygen Delivery Me thod Room Air 03/26/25 18:01 MDM - Nausea/Vomiting/Diarrhea Medical Decision Making -ddx: Gastroenteritis, UTI, electrolyte abnormality, dehydration, cannabis hyperemesis - Patient with 1 day of relative inability to p.o., NVD, very mild diffuse abdominal pain, reassuring abdominal exam, will start with fluids, Zofran, Pepcid, abdominal labs and reassess, will hold off on CT abdomen pelvis unless pain worsens or abnormal laboratory workup. - Patient with moderate hypophosphatemia, this was repleted, her nausea was initially doing better and then when she took the pills it came back, she was given Compazine with almost complete relief of the nausea again and was able to p.o. without issue. She had a moderate leukocytosis and her urine was the seeming source, was not septic but with concerns of vomiting, abdominal pain with this, we will treat it as a possible early pyelonephritis and so she was given her first dose of Rocephin and then discharged on a 7-day course of Keflex with a refill of her home Zyprexa for nausea as needed, supportive care recommendations given, advised to follow-up with PCP in a few days for reevaluation, strict return precautions given, discharged with at bedside Lab Data 03/26/25 18:03/26/25 18: Laboratory Results WBC 14.96 10^3/uL (3.29-11.43) H 03/26/25 18: RBC 4.51 10^6/uL (3.85-5.65) 03/26/25 18: Hgb 13.60 g/dL (11.27-16.99) 03/26/25 18: Hct 40.5 % (36-47) 03/26/25 18: MCV 89.8 fl (85-98) 03/26/25 18: MCH 30.2 pg (27-33) 03/26/25 18: MCHC 33.6 g/dL (30-55) 03/26/25 18: RDW 13.0 % (12.1-15.1) 03/26/25 18: Plt Count 280 10^3/cmm (157-399) 03/26/25 18: MPV 10.5 fL (7.4-10.4) H 03/26/25 18: Neut % (Auto) 86.0 % 03/26/25 18: Lymph % (Auto) 8.8 % 03/26/25 18: [place] % (Auto) 4.1 % 03/26/25 18: Eos % (Auto) 0.1 % 03/26/25 18: Baso % (Auto) 0.3 % 03/26/25 18: Neut # (Auto) 12.86 10^3/uL (1.8-7.7) H 03/26/25 18: Lymph # (Auto) 1.3 10^3/uL (0.8-4.8) 03/26/25 18: [place] # (Auto) 0.6 10^3/uL (0.2-0.9) 03/26/25 18: Eos # (Auto) 0.0 10^3/uL (0.0-0.8) 03/26/25 18: Baso # (Auto) 0.1 10^3/uL (0.0-0.1) 03/26/25 18: Nucleated RBC % (auto) 0 % 03/26/25 18: Nucleated RBCs # 0.0 /100WBC 03/26/25 18: Sodium 135 mmol/L (136-145) L 03/26/25 18: Potassium 3.5 mmol/L (3.5-5.1) 03/26/25 18: Chloride 97 mmol/L (98-107) L 03/26/25 18: Carbon Dioxide 17 mmol/L (22-29) L 03/26/25 18: Anion Gap 24.5 (5-19) H 03/26/25 18: BUN 11 mg/dL (6-20) 03/26/25 18: Creatinine 0.8 mg/dL (0.5-0.9) 03/26/25 18: GFR Calculation 84.8 mL/min (90-130) L 03/26/25 18: Glucose 197 mg/dL (65-115) H 03/26/25 18: Calculated Osmolality 285 mOsm/kg (285-295) 03/26/25 18: Calcium 9.6 mg/dL (8.5-10.5) 03/26/25 18: Phosphorus 0.6 mg/dL (2.5-4.5) L* 03/26/25 18: Magnesium 1.7 mg/dL (1.7-2.3) 03/26/25 18: Total Bilirubin 1.2 mg/dL (0.15-1.2) 03/26/25 18: AST 31 U/L (0-32) 03/26/25 18: ALT 33 U/L (0-33) 03/26/25 18: Alkaline Phosphatase 62 U/L (35-105) 03/26/25 18: C-React Prot High Sens < 0.150 mg/dL (0.0-0.3) 03/26/25 18: Total Protein 7.3 g/dL (6.6-8.7) 03/26/25 18: Albumin 4.6 g/dL (3.5-5.2) 03/26/25 18: Globulin 2.7 g/dL (1.3-4.6) 03/26/25 18: Lipase 27 U/L (13-60) 03/26/25 18:27 HCG, Qual Negative (Negative) 03/26/25 18:52 Urine Color Dark yellow (Yellow) A 03/26/25 18:52 Urine Appearance Cloudy (CLEAR) A 03/26/25 18:52 Urine pH 6.0 (5-7) 03/26/25 18:52 Ur Specific [place] 1.039 (1.005-1.030) H 03/26/25 18:52 Urine Protein 1+ (Negative) A 03/26/25 18:52 Urine Glucose (UA) Trace (Normal) H 03/26/25 18:52 Urine Ketones 4+ (Negative) 03/26/25 18:52 Urine Blood Negative (Negative) 03/26/25 18:52 Urine Nitrate Negative (Negative) 03/26/25 18:52 Urine Bilirubin 1+ (Negative) H 03/26/25 18:52 Urine Urobilinogen 1.0 mg/dL (Negative) 03/26/25 18:52 Ur Leukocyte Esterase 1+ (Negative) A 03/26/25 18:52 Urine RBC 0-2 /hpf (0-2) 03/26/25 18:52 Urine WBC 21-50 /hpf (0-5) H 03/26/25 18:52 Ur Squamous Epith Cells 11-20 /hpf (0-5) H 03/26/25 18:52 Amorphous Sediment Not Reportable 03/26/25 18:52 Urine Bacteria 3+ /hpf (NONE) H 03/26/25 18:52 Hyaline Casts 6.17 /lpf 03/26/25 18:52 Influenza A (PCR) Negative (Negative) 03/26/25 18:14 Influenza Type B (PCR) Negative (Negative) 03/26/25 18:14 RSV (PCR) Negative (Negative) 03/26/25 18:14 SARS-CoV-2 (PCR) Negative (Negative) 03/26/25 18:14 No radiology studies performed this visit Discharge Plan Discharge Patient Disposition: Home Clinical Impression: Nausea & vomiting, Pyelonephritis Condition: Stable Prescriptions: New olanzapine 10 mg tablet 10 mg PO BID PRN (Reason: nausea) 5 Days Qty: 10 0RF cephalexin 500 mg tablet 500 mg PO Q8H 10 Days Qty: 30 0RF No Action ondansetron 4 mg tablet,disintegrating 4 mg PO Q8H PRN (Reason: nausea and vomiting) Qty: 7 0RF lorazepam [Ativan] 2 mg tablet 2 mg buccal TID PRN (Reason: nausea and vomiting) Qty: 14 0RF olanzapine 10 mg tablet,disintegrating 10 mg PO DAILY PRN (Reason: nausea and vomitting) Qty: 20 0RF capsaicin 0.1 % cream 1 applic topical TID PRN (Reason: abdominal pain) Qty: 42.5 0RF Rx Instructions: do not wash area for at least 30 min after application, apply around the belly button, wash hands after application Discharge Orders: Discharge ED (Routine); Ordered 03/26/25 Ordered By: Antwan Meraz Referrals: Dax Guzman MD [Primary Care Provider, Family Practice] Discharge Diet: Advance as tolerated Discharge Activity: Resume usual activity Patient Instructions: Opioid Safety, Pain Management, Patient Portal & [place] Instructions Activity Restrictions/Additional Instructions: You were seen for your abdominal pain and vomiting, you were evaluated with labs and a urine test which found you to have a urinary tract infection with your symptoms it is concerning for an early kidney infection and so you will be treated with a prolonged course of antibiotics for this. Take the Keflex 500 mg 4 times a day for at least a total of 7 days, extend this to 10 days if your symptoms are not completely resolved. Ensure you stay hydrated. Use the olanzapine/Zyprexa, 10 mg every 12 hours as needed for nausea. Make a follow-up appointment with your primary care provider in a week's time to reevaluate the status of your infection and for repeat urine test. Return to the ED if your symptoms severely worsen, you have fevers that do not improve with Tylenol, continuous vomiting, inability to eat or drink, any other emergent concerns Print Language: Setswana Coding Level of Care Code ED Sales Planning Coordinator for Greg Avina
[2025-03-26 19:07] LABS: Add Urine Microscopic? YES; Universal Test for UA Present (0)
[2025-03-26 19:08] LABS: Alanine Aminotransferase 33 U/L (0-33); Albumin Level 4.6 g/dL (3.5-5.2); Alkaline Phosphatase 62 U/L (35-105); Anion Gap 24.5 (5-19); Aspartate Amino Transferase 31 U/L (0-32); Blood Urea Nitrogen 11 mg/dL (6-20); CRP High Sensitivity Cardiac < 0.150 mg/dL (0.0-0.3); Calcium 9.6 mg/dL (8.5-10.5); Carbon Dioxide 17 mmol/L (22-29); Chloride 97 mmol/L (98-107); Globulin 2.7 g/dL (1.3-4.6); Glucose 197 mg/dL (65-115); Lipase 27 U/L (13-60); Magnesium 1.7 mg/dL (1.7-2.3); Osmolality Calculated 285 mOsm/kg (285-295); Potassium 3.5 mmol/L (3.5-5.1); Sodium 135 mmol/L (136-145); Total Protein 7.3 g/dL (6.6-8.7)
[2025-03-26 19:18] VITALS: BP 111/63; PULSE 72; RESP 16; O2SAT 100
[2025-03-26 19:22] LABS: Specific Gravity, Urine 1.039 (1.005-1.030)
[2025-03-26 19:30] VITALS: BP 119/61; PULSE 93; RESP 18; O2SAT 91
--- NOTE | 2025-03-26 19:49 | PC.NURSE ---
verbal report given to Aleah 193
[2025-03-26 20:00] VITALS: BP 94/65; PULSE 61; RESP 16; O2SAT 100
[2025-03-26] MEDS: cefTRIAXone 1,000 mg SDV 1000 MG IVP (21:31)
[2025-03-26 21:40] VITALS: BP 106/73; PULSE 61; RESP 16; O2SAT 99
== END 2025-03-26 21:39 | disposition home or self-care (01) ==
PROVIDERS: Physician Assistant; Emergency Provider Student in an Organized Health Care Education/Training Program; PCP Family Medicine
DX: R11.2 Nausea with vomiting, unspecified (principal); N12 Tubulo-interstitial nephritis, not specified as acute or chronic; Z11.52 Encounter for screening for COVID-19
CPT/HCPCS: 36415; 80053; 81001; 81025; 83690; 83735; 84100; 84703; 85025; 86141; 87637; 93005; 96361; 96374; 96375; 99284; J0696; J0780; J1885; J2405; J3490; J7030; J9999